=== PATIENT | female | born 1970 | race Caucasian/White ===

== ENCOUNTER → 2019-11-26 12:38 | Outpatient (BNVA) | payer BC, SELFPAY | PROVIDERS: Family Provider Family Medicine; PCP Family Medicine; Visit Provider Anesthesiology | DX: M54.5 Low back pain (principal); M79.651 Pain in right thigh; M79.652 Pain in left thigh; F17.210 Nicotine dependence, cigarettes, uncomplicated; Z79.891 Long term (current) use of opiate analgesic | CPT/HCPCS: 99214 ==

== ENCOUNTER → 2020-03-22 08:17 | Outpatient (BNVA) | payer BC, SELFPAY | PROVIDERS: Family Provider Family Medicine; PCP Family Medicine; Visit Provider Anesthesiology | DX: M54.41 Lumbago with sciatica, right side (principal); M54.42 Lumbago with sciatica, left side; M54.9 Dorsalgia, unspecified; F17.210 Nicotine dependence, cigarettes, uncomplicated; Z79.891 Long term (current) use of opiate analgesic; Z71.6 Tobacco abuse counseling | CPT/HCPCS: 99214 ==

== ENCOUNTER → 2020-04-20 08:37 | Outpatient (BNVA) | payer BC, SELFPAY | PROVIDERS: Family Provider Family Medicine; PCP Family Medicine; Visit Provider Nurse Practitioner | DX: M54.42 Lumbago with sciatica, left side (principal); M54.9 Dorsalgia, unspecified; F17.210 Nicotine dependence, cigarettes, uncomplicated; Z79.891 Long term (current) use of opiate analgesic; Z71.6 Tobacco abuse counseling | CPT/HCPCS: 99214 ==

== ENCOUNTER → 2020-06-15 08:55 | Outpatient (BNVA) | payer BC, SELFPAY | PROVIDERS: Family Provider Family Medicine; PCP Family Medicine; Visit Provider Anesthesiology | DX: M54.42 Lumbago with sciatica, left side (principal); M54.41 Lumbago with sciatica, right side; M54.9 Dorsalgia, unspecified; F17.210 Nicotine dependence, cigarettes, uncomplicated; Z79.891 Long term (current) use of opiate analgesic | CPT/HCPCS: 99213; 99214 ==

== ENCOUNTER 2020-08-08 08:11 | Outpatient (CLI) | payer BC, SELFPAY ==
[2020-08-08 08:32] LABS: Basophils # 0.1 10^3/uL (0.0-0.1); Basophils % 0.8 %; Eosinophils # 0.2 10^3/uL (0.0-0.8); Eosinophils % 1.8 %; Hematocrit 42.5 % (37.0-47.0); Hemoglobin 13.9 g/dL (11.5-15.3); Lymphocytes # 1.8 10^3/uL (0.8-4.8); Lymphocytes % 17.5 %; Mean Corpuscular HGB Conc 32.7 g/dL (30.0-36.0); Mean Corpuscular Hemoglobin 29.9 pg (28.0-34.0); Mean Corpuscular Volume 91.4 fL (81-99); Mean Platelet Volume 9.3 fL (7.4-10.4); Monocytes # 0.6 10^3/uL (0.2-0.9); Neutrophils # 7.38 10^3/uL (1.8-7.7); Neutrophils % 72.7 %; Nucleated Red Blood Cells % 0 %; Platelet Count 242 10^3/cmm (130-400); Red Blood Count 4.65 10^6/uL (4.1-5.3); Red Cell Distribution Width 12.9 % (12.1-15.1); White Blood Count 10.1 10^3/uL (4.0-10.0)
[2020-08-08 08:53] LABS: Albumin Level 4.3 g/dL (3.5-5.2); Anion Gap 11.5 (5-19); Blood Urea Nitrogen 9 mg/dL (6-20); Calcium 9.9 mg/dL (8.5-10.5); Carbon Dioxide 28 mmol/L (22-29); Chloride 99 mmol/L (98-107); Glomerular Filtration Rate 58.9 mL/min (90-130); Glucose 136 mg/dL (65-115); Phosphorus 3.8 mg/dL (2.5-4.5); Potassium 4.5 mmol/L (3.5-5.1); Sodium 134 mmol/L (136-145)
[2020-08-08 09:06] LABS: Urine Creatinine 74 mg/dL (28-217); Urine Protein Random 9 mg/dL
[2020-08-08 09:11] LABS: UPRO/UCREAT Ratio 0.12 mg/mg CR
== END 2020-08-08 08:12 | disposition home or self-care (01) ==
LOC: LAB 08:15
PROVIDERS: PCP Family Medicine; Visit Provider Registered Nurse
DX: N18.30 Chronic kidney disease, stage 3 unspecified (principal)
CPT/HCPCS: 36415; 80069; 82570; 84156; 85025

== ENCOUNTER → 2020-08-17 08:31 | Outpatient (BNVA) | payer BC, SELFPAY | PROVIDERS: Family Provider Family Medicine; PCP Family Medicine; Visit Provider Anesthesiology | DX: M54.9 Dorsalgia, unspecified (principal); F17.210 Nicotine dependence, cigarettes, uncomplicated; Z79.891 Long term (current) use of opiate analgesic | CPT/HCPCS: 99212; 99214 ==

== ENCOUNTER → 2020-10-12 08:04 | Outpatient (BNVA) | payer BC, SELFPAY | PROVIDERS: Family Provider Family Medicine; PCP Family Medicine; Visit Provider Anesthesiology | DX: M54.42 Lumbago with sciatica, left side (principal); M54.41 Lumbago with sciatica, right side; M54.9 Dorsalgia, unspecified; F17.210 Nicotine dependence, cigarettes, uncomplicated; Z79.891 Long term (current) use of opiate analgesic | CPT/HCPCS: 99213 ==

== ENCOUNTER → 2020-11-17 08:41 | Outpatient (BNVA) | payer BC, SELFPAY | PROVIDERS: Family Provider Family Medicine; PCP Family Medicine; Visit Provider Nurse Practitioner | DX: G89.29 Other chronic pain (principal); M54.9 Dorsalgia, unspecified; F17.210 Nicotine dependence, cigarettes, uncomplicated; Z79.891 Long term (current) use of opiate analgesic; Z71.6 Tobacco abuse counseling | CPT/HCPCS: 99214 ==

== ENCOUNTER → 2021-01-13 09:25 | Outpatient (BNVA) | payer BC, SELFPAY | PROVIDERS: Family Provider Family Medicine; PCP Family Medicine; Visit Provider Nurse Practitioner | DX: M54.9 Dorsalgia, unspecified (principal); F17.210 Nicotine dependence, cigarettes, uncomplicated; Z79.891 Long term (current) use of opiate analgesic | CPT/HCPCS: 99213 ==

== ENCOUNTER 2021-03-14 09:57 | Emergency (ER) | payer BC, SELFPAY ==
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
[2021-03-14 10:05] VITALS: BP 169/99; PULSE 73; RESP 18; TEMP 36.6; O2SAT 97; BMI 36.0
[2021-03-14 10:09] VITALS: BP 124/80; PULSE 69; RESP 18; O2SAT 97
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
[2021-03-14 11:13] LABS: Basophils # 0.1 10^3/uL (0.0-0.1); Basophils % 0.9 %; Eosinophils # 0.2 10^3/uL (0.0-0.8); Eosinophils % 1.3 %; Hematocrit 43.1 % (37.0-47.0); Lymphocytes # 2.3 10^3/uL (0.8-4.8); Lymphocytes % 19.8 %; Mean Corpuscular HGB Conc 32.5 g/dL (30.0-36.0); Mean Corpuscular Hemoglobin 29.5 pg (28.0-34.0); Mean Corpuscular Volume 90.9 fL (81-99); Monocytes # 0.8 10^3/uL (0.2-0.9); Monocytes % 6.7 %; Neutrophils # 8.21 10^3/uL (1.8-7.7); Neutrophils % 69.9 %; Nucleated Red Blood Cells % 0 %; Platelet Count 236 10^3/cmm (130-400); Red Blood Count 4.74 10^6/uL (4.1-5.3); Red Cell Distribution Width 12.7 % (12.1-15.1); White Blood Count 11.7 10^3/uL (4.0-10.0)
[2021-03-14] MEDS: iodixanol 320 mg/mL 100mL Btl IV (11:16)
[2021-03-14 11:33] LABS: Anion Gap 15.7 (5-19); Blood Urea Nitrogen 15 mg/dL (6-20); Calcium 7.6 mg/dL (8.5-10.5); Carbon Dioxide 26 mmol/L (22-29); Chloride 99 mmol/L (98-107); Creatinine Clr Calc Pharmacy 92.8984; Glomerular Filtration Rate 66.3 mL/min (90-130); Glucose 173 mg/dL (65-115); Osmolality Calculated 285 mOsm/kg (285-295); Potassium 5.7 mmol/L (3.5-5.1); Sodium 135 mmol/L (136-145)
[2021-03-14 12:24] LABS: Add Urine Microscopic? NO; Charge for UA Resulting for Rev
[2021-03-14 12:33] LABS: Bilirubin Urine Neg (Negative); Blood Urine Neg (Negative); Glucose Urine UA Norm (Normal); Ketones Urine Negative (Negative); Leukocyte Esterase Urine Negative (Negative); Nitrate Urine Negative (Negative); Protein Urine Neg (Negative); Urine Appearance Clear (CLEAR); Urine Color Yellow (Yellow); Urobilinogen Urine Norm (Negative); pH Urine 5 (5-7)
[2021-03-14 13:16] VITALS: BP 144/101; PULSE 70; RESP 16; O2SAT 98
== END 2021-03-14 13:17 | disposition home or self-care (01) ==
PROVIDERS: Emergency Provider Family Medicine; PCP Family Medicine
DX: Z04.1 Encounter for examination and observation following transport accident (principal); M54.9 Dorsalgia, unspecified; V89.2XXA Person injured in unspecified motor-vehicle accident, traffic, initial encounter; F17.210 Nicotine dependence, cigarettes, uncomplicated
CPT/HCPCS: 70450; 71260; 72125; 74177; 80048; 81003; 85025; 99283; Q9967

== ENCOUNTER → 2021-03-16 08:51 | Outpatient (BNVA) | payer BC, SELFPAY | PROVIDERS: PCP Family Medicine; Visit Provider Nurse Practitioner | DX: M54.9 Dorsalgia, unspecified (principal); F17.210 Nicotine dependence, cigarettes, uncomplicated; Z79.891 Long term (current) use of opiate analgesic; Z71.6 Tobacco abuse counseling | CPT/HCPCS: 99213 ==

== ENCOUNTER → 2021-05-16 08:31 | Outpatient (BNVA) | payer BC, SELFPAY | PROVIDERS: PCP Family Medicine; Visit Provider Nurse Practitioner | DX: M25.512 Pain in left shoulder (principal); M54.9 Dorsalgia, unspecified; F17.210 Nicotine dependence, cigarettes, uncomplicated; Z79.891 Long term (current) use of opiate analgesic; Z71.6 Tobacco abuse counseling | CPT/HCPCS: 99214 ==

== ENCOUNTER → 2021-06-09 09:12 | Outpatient (BNVA) | payer BC, SELFPAY | PROVIDERS: PCP Family Medicine; Visit Provider Anesthesiology | DX: M54.5 Low back pain (principal); M25.512 Pain in left shoulder; F17.210 Nicotine dependence, cigarettes, uncomplicated; Z79.891 Long term (current) use of opiate analgesic | CPT/HCPCS: 99213 ==

== ENCOUNTER 2021-07-11 08:00 | Outpatient (CLI) | payer BC, SELFPAY ==
--- NOTE | 2021-07-11 08:03 | XR_ITS ---
WS: [id number] LUMBAR SPINE FLEXION AND EXTENSION TECHNIQUE: 3 views of the lumbar spine: Lateral neutral, flexion, and extension views. CLINICAL INFORMATION: LOW BACK PAIN COMPARISON: None. FINDINGS: Slight retrolisthesis L4 on L5. No significant instability on flexion-extension. Disc space heights and vertebral body heights well-preserved. Mild disc space narrowing L5-S1. Mild facet arthr opathy L5-S1. XR/XR lumbar spine f/e only [id number] IMPRESSION: 1. No instability on flexion-extension. 2. Trace retrolisthesis L4 on L5. 3. Disc space heights and vertebral body heights well-preserved. 4. Mild facet arthropathy L5-S1.
--- NOTE | 2021-07-11 08:04 | MR_ITS ---
WS: [id number] MRI LUMBAR SPINE NONCONTRAST TECHNIQUE: Sagittal T1, T2 and STIR imaging. Axial T1 and T2 imaging. CLINICAL INFORMATION: LOW BACK PAIN COMPARISON: None. FINDINGS: Mild lumbar curve. No acute compression. No high-grade central canal stenosis. Mild annular bulging T 11-T12. L1-L2: Normal. L2-L3: Mild annular bulging with a small left foraminal protrusion. Mild left and no significant righ t foraminal narrowing. Slight narrowing of the left subarticular recess. Mild facet arthropathy. L3-L4: Mild annular bulging with slight effacement of ventral thecal sac. Tiny foraminal protrusions with mild bilateral foraminal narrowing. Mild facet arthropathy. L4-L5: Left eccentric disc bulging L4-5 with a small annular tear. Contact of the exiting left L4 ner ve root. Mild left foraminal narrowing. Right foramen is patent. Moderate facet arthropathy. Slight i mpingement on the traversing left L5 nerve root in the subarticular recess. L5-S1: Mild eccentric disc bulging. Mild facet arthropathy. Spinal canal and foramen are patent. Partially visualized right ovarian cyst with hematocrit level measuring 2.8 x 1.9 CM. This can be fol lowed up with ultrasound. MR/MR lumbar spine wo con* [id number] IMPRESSION: 1. Mild lumbar curve. No acute compression. No high-grade central canal stenos is. 2. Small left foraminal protrusion L2-3 with mild left foraminal narrowing. 3. Small bilateral foraminal protrusions L3-4 with mild bilateral foraminal na rrowing. 4. Left eccentric disc bulging L4-5 with small annular tear and slight impinge ment on the exiting left L4 nerve root. In addition slight impingement on the t raversing left L5 nerve root in the subarticular recess. 5. Mild central canal stenosis L3-4 with slight narrowing of the subarticular recess. 6. Partially visualized right ovarian cyst with hematocrit level measuring 2.8 x 1.9 CM. This can be followed up with ultrasound.
== END 2021-07-11 08:01 | disposition home or self-care (01) ==
PROVIDERS: PCP Family Medicine; Visit Provider Nurse Practitioner
DX: M54.5 Low back pain (principal); M48.061 Spinal stenosis, lumbar region without neurogenic claudication; N83.201 Unspecified ovarian cyst, right side; M47.816 Spondylosis without myelopathy or radiculopathy, lumbar region
CPT/HCPCS: 72120; 72148

== ENCOUNTER 2021-11-29 00:54 | Emergency (ER) | payer OTHER, SELFPAY ==
[2021-11-29 01:05] VITALS: BP 174/88; PULSE 88; RESP 18; TEMP 36.8; O2SAT 100
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
== END 2021-11-29 02:51 | disposition home or self-care (01) ==
PROVIDERS: Emergency Provider Nurse Practitioner Family; PCP Family Medicine
DX: S39.012A Strain of muscle, fascia and tendon of lower back, initial encounter (principal); T14.8XXA Other injury of unspecified body region, initial encounter; M79.622 Pain in left upper arm; V79.9XXA Bus occupant (driver) (passenger) injured in unspecified traffic accident, initial encounter; F17.210 Nicotine dependence, cigarettes, uncomplicated
CPT/HCPCS: 73060; 99282

== ENCOUNTER 2022-02-19 09:12 | Outpatient (CLI) | payer BC, SELFPAY ==
[2022-02-19 09:49] LABS: Basophils # 0.1 10^3/uL (0.0-0.1); Basophils % 0.6 %; Eosinophils # 0.2 10^3/uL (0.0-0.8); Eosinophils % 1.5 %; Hematocrit 44.4 % (37.0-47.0); Hemoglobin 14.7 g/dL (11.5-15.3); Lymphocytes # 1.7 10^3/uL (0.8-4.8); Mean Corpuscular HGB Conc 33.1 g/dL (30.0-36.0); Mean Corpuscular Hemoglobin 29.8 pg (28.0-34.0); Mean Corpuscular Volume 90.1 fl (81-99); Mean Platelet Volume 9.5 fL (7.4-10.4); Monocytes # 0.7 10^3/uL (0.2-0.9); Monocytes % 6.3 %; Neutrophils # 7.91 10^3/uL (1.8-7.7); Neutrophils % 74.7 %; Nucleated Red Blood Cells % 0 %; Platelet Count 236 10^3/cmm (130-400); Red Blood Count 4.93 10^6/uL (4.1-5.3); Red Cell Distribution Width 12.9 % (12.1-15.1); White Blood Count 10.6 10^3/uL (4.0-10.0)
[2022-02-19 10:23] LABS: Albumin Level 4.5 g/dL (3.5-5.2); Anion Gap 15.9 (5-19); Blood Urea Nitrogen 18 mg/dL (6-20); Calcium 10.1 mg/dL (8.5-10.5); Calcium 10.4 mg/dL (8.5-10.5); Carbon Dioxide 26 mmol/L (22-29); Chloride 98 mmol/L (98-107); Glomerular Filtration Rate 52.4 mL/min (90-130); Glucose 128 mg/dL (65-115); Phosphorus 4.5 mg/dL (2.5-4.5); Potassium 4.9 mmol/L (3.5-5.1); Sodium 135 mmol/L (136-145)
[2022-02-19 10:34] LABS: Creatinine Urine, Random 162 mg/dL (28-217); Microalbum Creatinine Ratio Ur 25 mg/dL (0-20); Microalbumin Random Urine 4 ug/dL (0-20)
[2022-02-19 10:38] LABS: 25 Hydroxy Vitamin D 33 ng/mL (30-100)
[2022-02-19 10:47] LABS: Parathyroid Hormone 33.2 pg/mL (15-65)
== END 2022-02-19 09:13 | disposition home or self-care (01) ==
LOC: LAB 09:23
PROVIDERS: PCP Family Medicine; Visit Provider Internal Medicine Nephrology
DX: N18.30 Chronic kidney disease, stage 3 unspecified (principal)
CPT/HCPCS: 36415; 80069; 82044; 82306; 82310; 83970; 85025

== ENCOUNTER 2022-03-30 07:00 | Outpatient (CLI) | payer BC, OTHER, SELFPAY ==
--- NOTE | 2022-03-30 07:09 | US_ITS ---
WS: [id number] RENAL ULTRASOUND HISTORY: STAGE 3A CHRONIC KIDNEY DZ COMPARISON: 02/07/2018 TECHNIQUE: 2-D and color Doppler imaging of the kidney submitted. Right kidney: 11.8 cm x 6.7 cm x 5.5 cm. Normal echogenicity with no hydronephrosis or mass. Left kidney: 7.2 cm x 3.9 cm x 3.4 cm. Moderate atrophy with diffuse increased echogenicity throughout the kidney. No hydronephrosis or mass . Progression of chronic medical renal disease and atrophy since 2018. Aorta: Normal. Urinary Bladder: Normal distention. US/US renal BI* [id number] IMPRESSION: 1. Moderate to severe chronic medical renal disease LEFT kidney with moderate atrophy. Significant progression of chronic medical renal disease since 2018. 2. Normal RIGHT kidney.
== END 2022-03-30 07:01 | disposition home or self-care (01) ==
LOC: RAD 07:01
PROVIDERS: PCP Family Medicine; Visit Provider Internal Medicine Nephrology
DX: N18.31 Chronic kidney disease, stage 3a (principal)
CPT/HCPCS: 76770

== ENCOUNTER → 2023-01-31 11:50 | Outpatient (BNVA) | payer BC, SELFPAY | PROVIDERS: PCP Family Medicine; Visit Provider Family Medicine | DX: E11.9 Type 2 diabetes mellitus without complications (principal); Z51.81 Encounter for therapeutic drug level monitoring | CPT/HCPCS: 80053; 83036; 85025 ==

== ENCOUNTER 2023-04-19 07:59 | Outpatient (CLI) | payer BC, SELFPAY ==
--- NOTE | 2023-04-19 08:09 | MR_ITS ---
WS: [id number] MRI LUMBAR SPINE NONCONTRAST HISTORY: CERVICAL DISC DISORDER W/RADICULOPATHY COMPARISON: 07/11/2021 TECHNIQUE: Sagittal and axial multisequence imaging is submitted. Normal lumbar alignment with no compression fractures or marrow edema. Disc spaces and vertebral body heights are well-preserved. Conus terminates normally at L1-2 disc level. L1-L2: Normal. L2-L3: Mild annular disc bulging with small bilateral proximal foraminal disc protrusions. Mild LEFT foraminal stenosis. There is very minimal disc contact on the traversing L3 nerve roots. Very similar findings to the prior examination. L3-L4: Mild annular disc bulging with mild effacement of the ventral thecal sac. Very small foraminal disc protrusions with mild bilateral foraminal narrowing. Very similar to the prior study. Mild encr oachment upon the traversing L4 nerve roots. L4-L5: Mild annular disc bulging. Shallow eccentric LEFT foraminal disc protrusion with annular fissu re. There is mild contact on the exiting LEFT L4 nerve root and mild foraminal narrowing. Mild bilate ral facet joint arthritis. Very slight impingement upon the traversing L5 nerve root in the subarticu lar recess. Slightly progressed since the prior study. L5-S1: Minimal facet joint arthritis. No stenosis. MR/MR lumbar spine wo con* [id number] IMPRESSION: 1. Minimal progression of contact on the traversing L5 nerve root at L4-5 and the subarticular recess since the prior study. 2. Otherwise no significant progression of stenoses or disc disease. 3. No high-grade central or foraminal stenosis. 4. Mild LEFT foraminal stenosis at L2-3 with minimal disc contact on the trave rsing L3 nerve roots. 5. Small bilateral foraminal disc protrusions with bilateral foraminal narrowi ng. Minimal contact on the traversing L4 nerve roots. 6. Shallow eccentric LEFT foraminal disc protrusion with annular fissures at L 4-5.
--- NOTE | 2023-04-19 08:09 | MR_ITS ---
WS: [id number] MRI CERVICAL SPINE NONCONTRAST HISTORY: Neck and back pain. COMPARISON: Cervical spine 03/14/2021 Technique: Multiplanar, multisequence noncontrast imaging of the cervical spine. Mild straightening of the normal cervical lordosis. No loss of disc space height or vertebral body he ight. No marrow edema. Signal within the cervical cord is normal. Visualized posterior fossa is unremarkable. Craniocervical junction, C1 and C2 relationship, odontoid process and soft tissues are normal. C2-C3: Normal. C3-C4: Small central disc protrusion. No stenosis. C4-C5: Normal. C5-C6: Mild annular disc bulging. No stenosis. C6-C7: Mild annular disc bulging with a small central disc protrusion. Effacement of CSF. Small amoun t of CSF still surrounds the cord. Mild foraminal narrowing due to osteophytes, greatest on the LEFT. C7-T1: Normal. Paraspinal soft tissue are normal. MR/MR cervical spin wo con* [id number] IMPRESSION: 1. No acute fracture or significant central or foraminal stenosis. 2. Small central disc protrusions at C3-4 and C6-7. 3. Mild foraminal narrowing at C6-7 due to osteophytes, greatest on the LEFT.
== END 2023-04-19 08:00 | disposition home or self-care (01) ==
LOC: RAD 08:01
PROVIDERS: PCP Family Medicine; Visit Provider Physical Therapist
DX: M50.123 Cervical disc disorder at C6-C7 level with radiculopathy (principal); M50.11 Cervical disc disorder with radiculopathy, high cervical region; M25.78 Osteophyte, vertebrae; M48.061 Spinal stenosis, lumbar region without neurogenic claudication; M51.26 Other intervertebral disc displacement, lumbar region
CPT/HCPCS: 72141; 72148

== ENCOUNTER 2023-05-08 07:41 | Outpatient (CLI) | payer BC, SELFPAY ==
--- NOTE | 2023-05-08 08:00 | MR_ITS ---
WS: [id number] MRI RIGHT SHOULDER HISTORY: Right shoulder pain COMPARISON: None available. TECHNIQUE: Multiplanar sequences of the shoulder joint are submitted. Numerous sequences are suboptimal and limited by motion artifact. Moderate AC joint arthritis. There is significant motion artifact limiting evaluation of the AC joint . There is encroachment with deformity of the supraspinatus tendon and muscle over the humeral head. No significant subacromial impingement. There does appear to be a small amount of fluid in the subacr omial and subdeltoid bursa. No os acromion. Normal biceps tendon. Mild narrowing of the glenohumeral joint. Degraded image quality by motion. No significant rotator cu ff muscle atrophy and no edema. There is increase fluid along the tendon sheath of the supraspinatus with increasing fluid at the insertion site. Insertion site tear is suspected with interstitial exten meredith of the fluid. No retraction of the tendon. The remaining tendons are intact. Labral evaluation i s suboptimal due to the motion. There is a small amount of increased T2 signal in the anterior labrum but cannot confirm tear. MR/MR shoulder RT wo con* [id number] IMPRESSION: 1. Quality of this examination is compromised by motion artifact. 2. Moderate AC joint arthritis with mild encroachment upon the myotendinous po rtion of the supraspinatus. 3. Distal insertion site tear of the supraspinatus tendon with extension of fl uid along the tendon sheath. 4. No rotator cuff muscle atrophy or edema. 5. Intrasubstance degeneration in the anterior labrum.
== END 2023-05-08 07:42 | disposition home or self-care (01) ==
PROVIDERS: PCP Family Medicine; Visit Provider Family Medicine
DX: M25.511 Pain in right shoulder (principal); M19.011 Primary osteoarthritis, right shoulder
CPT/HCPCS: 73221

== ENCOUNTER → 2023-08-05 14:35 | Outpatient (BNVA) | payer BC, SELFPAY | PROVIDERS: PCP Family Medicine; Visit Provider Family Medicine | DX: Z51.81 Encounter for therapeutic drug level monitoring (principal); E11.9 Type 2 diabetes mellitus without complications; M54.9 Dorsalgia, unspecified; M25.552 Pain in left hip; I10 Essential (primary) hypertension; M25.511 Pain in right shoulder; F41.9 Anxiety disorder, unspecified | CPT/HCPCS: 80053; 83036 ==

== ENCOUNTER 2023-09-29 08:52 | Observation (INO) | payer BC, SELFPAY ==
[2023-09-29] VITALS (11 sets, daily range): BP systolic 120–184; BP diastolic 78–112; PULSE 61–75; RESP 13–18; TEMP 37.2; O2SAT 94–100
--- NOTE | 2023-09-29 08:52 | XRR_ITS ---
PROCEDURE INFORMATION: Exam: XR Chest Exam date and time: 09/29/2023 9:32 AM Age: 52 years old Clinical indication: Pain; Chest pressure; Additional info: Cp TECHNIQUE: Imaging protocol: Radiologic exam of the chest. Views: 1 view. COMPARISON: CT chest abdpel w/*[id number] 03/14/2021 10:58 AM FINDINGS: Lungs: Unremarkable. No consolidation. Pleural spaces: Unremarkable. No pleural effusion. No pneumothorax. Heart/Mediastinum: Unremarkable. No cardiomegaly. Bones/joints: Unremarkable. XR/XR chest 1V portable [id number] IMPRESSION: No acute findings.
--- NOTE | 2023-09-29 09:02 | ECG_ITS ---
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 Measurements Intervals [place] Rate: 56 P: 47 [place]: 145 QRS: 55 QRSD: 94 T: 100 QT: 402 QTc: 389 Interpretive Statements SINUS BRADYCARDIA ST elevation in the inferior leads suggesting acute inferior wall injury MODERATE ST DEPRESSION [0.05+ mV ST DEPRESSION] INTERPRETATION BASED ON A DEFAULT AGE OF 40 YEARS No previous ECG available for comparison Electronically Signed On 09-29-2023 19:43:44 MARKET RELATIONSHIP MANAGER by Pollo Canales M.D. [id number] f
--- NOTE | 2023-09-29 09:05 | W.ED.CHESTPA ---
HPI - Chest Pain General: Chief Complaint: Chest Pain Stated Complaint: chest pains Time Seen by Provider: 09/29/23 08:53 Source: patient Mode of arrival: ambulatory Limitations: no limitations History of Present Illness: 52-year-old female states she started having chest pain last night. States pressure type pain in her chest that goes to her left neck states had some diaphoresis as well. States she has had a cough over the last week denies any fevers or shortness of breath. No history of coronary artery disease is a smoker and has a history of hypertension. Associated symptoms: Deny abdominal pain, dyspnea, fever(s), nausea or vomiting Review of Systems Const: Denies: fever(s), chills, body aches or change in appetite Eyes: Denies: blurry vision or eye discomfort ENMT: Denies: throat pain or dental pain Card: Reports: chest pain Resp: Reports: non-productive cough; Denies: dyspnea GI: Denies: abdominal pain, nausea, vomiting or diarrhea Musc: Denies: neck pain or back pain Skin/Breast: Denies: rash Neuro: Denies: headache(s) PFSH ED PFSH: Medical History Hypertension Tobacco abuse counseling Opioid contract exists Encounter for long-term use of opiate analgesic Musculoskeletal back pain Smoker HGSIL (high grade squamous intraepithelial lesion) on Pap smear of cervix Patient was counseled regarding abnormal Pap smear results. Her Pap resulted in high-grade TARA. Women with this results have a 5 year DAVID-3+ risks of 47% and per current ACOG/ASSCP guidelines a colposcopy is indicated. She was counseled regarding colposcopy and an ACOG patient medication handout regarding abnormal Pap results and colposcopy was given. All questions were answered regarding colposcopy. Colposcopy was inadequate and a diagnostic excision as a cone biopsy is recommended. She was counseled regarding cone biopsy and elected to proceed with the procedure. She is scheduled for the diagnostic excisional procedure on 11/12/2018. Surgical History History of carpal tunnel surgery of left wrist Dr. Rodríguez History of cervical biopsy Cervical cone biopsy 11/12/2018 History of surgical removal of ganglion cyst History of bunionectomy History of cholecystectomy Family History Mother Diabetes Heart disease Family/Other Breast cancer Maternal Aunt Social History Smoking and tobacco/nicotine status: current every day tobacco/nicotine user cigarettes Packs smoked per day: 0.5 Alcohol intake: never Substance/Drug Use: never Additional social history: Well balanced diet Physical Exam Const: COMMON NORMALS: patient oriented x3 HENMT: COMMON NORMALS: normocephalic and atraumatic HEAD & SCALP: normocephalic and atraumatic Eye: COMMON NORMALS: Equal, round and reactive pupils present and EOMs intact bilaterally PUPIL: Yes Equal, round and reactive pupils present Neck/C-Spine: COMMON NORMALS: full ROM and supple Chest: COMMONS NORMALS: normal inspection of the chest and normal palpation of entire chest wall Resp: COMMON NORMALS: normal respiratory effort, No retractions, No use of accessory muscles and clear to auscultation bilaterally AUSCULTATION: clear to auscultation bilaterally Cardio: COMMON NORMALS: regular rate, regular rhythm and No murmurs present (Cardio) RATE: regular rate RHYTHM: regular rhythm GI: COMMON NORMALS: Normal to inspection, nondistended, normoactive bowel sounds present, Soft to palpation, non-tender and no masses PALPATION: Yes Soft to palpation Extremity: COMMON NORMALS: normal to inspection and full ROM Neuro: COMMON NORMALS: patient oriented x3, moves all extremities and no focal motor deficits Psych: COMMON NORMALS: mental status grossly normal, Normal thought process present and cooperative THOUGHT PROCESS: Normal thought process present Skin: COMMON NORMALS: no rashes or lesions noted and no wounds GENERAL SKIN EXAM: no rashes or lesions noted Course Reevaluation(s): Reevaluation #1: Patient's EKG had elevation in 1-lead depression in aVL no elevation in 2 contiguous leads no STEMI I did have Dr. Vela review the EKGs who agreed that EKG is not a STEMI I recommend to follow troponins Time: 09:05 Reevaluation #2: Patient's pain here is actually improved her troponin was 11 I had nurse repeat EKG as has concerns of first EKG changes and patient's EKG here now is showing evolving STEMI with elevation in leads III and aVF Time: 10:10 Vital Signs: Vital signs: Vital Signs Pulse Rate 61 09/29/23 08:59 Respiratory Rate 18 09/29/23 08:59 Blood Pressure 184/97 09/29/23 08:59 Pulse Oximetry 100 09/29/23 08:59 Oxygen Delivery Me thod Room Air 09/29/23 08:59 MDM - Chest Pain Medical Decision Making Patient presents here with ST elevation AR seen on 30 EKG here her pain is improved spoke to ethnology professor and is going to 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 Lab Data I reviewed the patient's lab results. 09/29/23 09:07 09/29/23 09:07 Radiology Impressions Chest X-Ray 09/29/23 08:52 IMPRESSION: No acute findings. Laboratory Results WBC 11.53 10^3/uL (3.29-11.43) H 09/29/23 09:07 RBC 5.18 10^6/uL (3.85-5.65) 09/29/23 09:07 Hgb 15.60 g/dL (11.27-16.99) 09/29/23 09:07 Hct 47.0 % (36-47) 09/29/23 09:07 MCV 90.7 fl (85-98) 09/29/23 09:07 MCH 30.1 pg (27-33) 09/29/23 09:07 MCHC 33.2 g/dL (30-55) 09/29/23 09:07 RDW 13.1 % (12.1-15.1) 09/29/23 09:07 Plt Count 295 10^3/cmm (157-399) 09/29/23 09:07 MPV 9.5 fL (7.4-10.4) 09/29/23 09:07 Neut % (Auto) 65.9 % 09/29/23 09:07 Lymph % (Auto) 21.9 % 09/29/23 09:07 [place] % (Auto) 8.0 % 09/29/23 09:07 Eos % (Auto) 2.2 % 09/29/23 09:07 Baso % (Auto) 1.0 % 09/29/23 09:07 Neut # (Auto) 7.60 10^3/uL (1.8-7.7) 09/29/23 09:07 Lymph # (Auto) 2.5 10^3/uL (0.8-4.8) 09/29/23 09:07 [place] # (Auto) 0.9 10^3/uL (0.2-0.9) 09/29/23 09:07 Eos # (Auto) 0.3 10^3/uL (0.0-0.8) 09/29/23 09:07 Baso # (Auto) 0.1 10^3/uL (0.0-0.1) 09/29/23 09:07 Nucleated RBC % (auto) 0 % 09/29/23 09:07 Nucleated RBCs # 0.0 /100WBC 09/29/23 09:07 PT 12.20 SECONDS (12.1-14.9) 09/29/23 09:07 INR 0.88 (0.8-1.2) 09/29/23 09:07 Sodium 136 mmol/L (136-145) 09/29/23 09:07 Potassium 4.4 mmol/L (3.5-5.1) 09/29/23 09:07 Chloride 100 mmol/L (98-107) 09/29/23 09:07 Carbon Dioxide 24 mmol/L (22-29) 09/29/23 09:07 Anion Gap 16.4 (5-19) 09/29/23 09:07 BUN 15 mg/dL (6-20) 09/29/23 09:07 Creatinine 1.1 mg/dL (0.5-0.9) H 09/29/23 09:07 GFR Calculation 52.2 mL/min (90-130) L 09/29/23 09:07 Glucose 184 mg/dL (65-115) H 09/29/23 09:07 Calculated Osmolality 288 mOsm/kg (285-295) 09/29/23 09:07 Calcium 9.9 mg/dL (8.5-10.5) 09/29/23 09:07 Total Bilirubin 0.3 mg/dL (0.15-1.2) 09/29/23 09:07 AST 15 U/L (0-32) 09/29/23 09:07 ALT 31 U/L (0-33) 09/29/23 09:07 Alkaline Phosphatase 94 U/L (35-105) 09/29/23 09:07 Troponin T Baseline 11 ng/L (0-10) H 09/29/23 09:07 Total Protein 7.8 g/dL (6.6-8.7) 09/29/23 09:07 Albumin 4.4 g/dL (3.5-5.2) 09/29/23 09:07 Globulin 3.4 g/dL (1.3-4.6) 09/29/23 09:07 Lipase 24 U/L (13-60) 09/29/23 09:07 All radiology interpretation(s) finalized by discharge EKG Data EKG 1: I personally reviewed and interpreted this EKG as follows: EKG interpretation date: 09/29/23 EKG interpretation time: 09:02 Interpretation: sinus michelet hr 56 no stemi elevation in lead 3 depression in avl EKG 3: I personally reviewed and interpreted this EKG as follows: EKG interpretation date: 09/29/23 EKG interpretation time: 10:10 Interpretation: nsr hr 63 st elevation 3 and avf Critical Care Time Critical Care Time: Critical Care Time: Yes Total Critical Care Time: 40 Attestation: The high probability of a clinically significant, sudden or life threatening deterioration of the patient's cv system(s) required my full and direct attention, intervention and personal management. The critical care time is as shown. This time is in addition to time spent performing any reported procedures but includes the following: [x] Data and vital sign review and interpretation [x] Patient assessment, examination and intervention [x] Documentation [x] Medication orders and management Discharge Plan Discharge Patient Disposition: Admitted As Inpatient Clinical Impression: ST elevation myocardial infarction (STEMI) Condition: Stable Prescriptions: No Action Mirena 20 mcg/24 hours (5 yrs) 52 mg intrauterine device See Rx Instructions .ROUTE .COMPLEX Rx Instructions: intrauterinely codeine-guaifenesin 10-100 mg/5 mL liquid 5 ml PO Q6H PRN (Reason: cough) 5 Days Qty: 100 0RF (DME) blood-glucose meter Kit See Rx Instructions .ROUTE .MEDSUPPLY Qty: 1 0RF Rx Instructions: As directed clonidine HCl 0.1 mg tablet 0.1 mg PO DAILY PRN (Reason: hypertensive emergency) Qty: 30 0RF Rx Instructions: WHEN BP IS > 170 (DME) lancets [OneTouch Delica Plus Lancet] 33 gauge misc See Rx Instructions .ROUTE .MEDSUPPLY Qty: 100 12RF Rx Instructions: As directed (DME) OneTouch Ultra Test Strip See Rx Instructions .Route Qty: 100 12RF Rx Instructions: As directed hydrocodone-acetaminophen 7.5-325 mg tablet 1 tab PO Q6H PRN (Reason: pain) 30 Days Qty: 120 0RF atenolol 100 mg tablet 100 mg PO QAM Lamictal 25 mg tablet 75 mg PO QAM amlodipine 10 mg tablet 10 mg PO QAM nystatin 100,000 unit/gram cream 1 applic topical TID PRN (Reason: Rash) losartan 100 mg tablet 50 mg PO QAM metformin 500 mg tablet extended release 24 hr 250 mg PO BID venlafaxine 150 mg tablet extended release 24hr 150 mg PO QAM Ozempic 0.25 mg or 0.5 mg (2 mg/3 mL) pen injector 0.5 mg SUBCUT Q7D Rx Instructions: on saturday Referrals: Gagan Lomeli MD [Primary Care Provider] - Coding Level of Care Code ED 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
[2023-09-29 09:13] LABS: Basophils # 0.1 10^3/uL (0.0-0.1); Eosinophils # 0.3 10^3/uL (0.0-0.8); Eosinophils % 2.2 %; Lymphocytes # 2.5 10^3/uL (0.8-4.8); Lymphocytes % 21.9 %; Mean Corpuscular HGB Conc 33.2 g/dL (30-55); Mean Corpuscular Hemoglobin 30.1 pg (27-33); Mean Corpuscular Volume 90.7 fl (85-98); Mean Platelet Volume 9.5 fL (7.4-10.4); Monocytes # 0.9 10^3/uL (0.2-0.9); Neutrophils % 65.9 %; Nucleated Red Blood Cells % 0 %; Platelet Count 295 10^3/cmm (157-399); Red Blood Count 5.18 10^6/uL (3.85-5.65); Red Cell Distribution Width 13.1 % (12.1-15.1); White Blood Count 11.53 10^3/uL (3.29-11.43)
[2023-09-29 09:24] LABS: INR 0.88 (0.8-1.2)
[2023-09-29 09:35] LABS: Alanine Aminotransferase 31 U/L (0-33); Albumin Level 4.4 g/dL (3.5-5.2); Alkaline Phosphatase 94 U/L (35-105); Anion Gap 16.4 (5-19); Aspartate Amino Transferase 15 U/L (0-32); Blood Urea Nitrogen 15 mg/dL (6-20); Calcium 9.9 mg/dL (8.5-10.5); Carbon Dioxide 24 mmol/L (22-29); Chloride 100 mmol/L (98-107); Globulin 3.4 g/dL (1.3-4.6); Glomerular Filtration Rate 52.2 mL/min (90-130); Glucose 184 mg/dL (65-115); Lipase 24 U/L (13-60); Osmolality Calculated 288 mOsm/kg (285-295); Potassium 4.4 mmol/L (3.5-5.1); Sodium 136 mmol/L (136-145); Total Bilirubin 0.3 mg/dL (0.15-1.2); Total Protein 7.8 g/dL (6.6-8.7)
[2023-09-29 09:36] LABS: Troponin(5th) Baseline 11 ng/L (0-10)
[2023-09-29] MEDS: aspirin 81 mg Chew Tablet 324 MG PO (09:58)
[2023-09-29] MEDS: nitroglycerin 0.4 mg sublingual Tablet SUBLINGUAL (09:59)
--- NOTE | 2023-09-29 09:59 | PC.PHAR ---
pt states she takes care of her own medications-pt states she takes losartan 100mg tab takes 1/2 tab (50mg) po qam rx filled 04/01/23 90d/s for 100mg daily-pt states she takes metformin er 500mg takes 1/2 tab (250mg)bid ext shows last filled 05/02/23 30d/s for 500mg bid-notes are made in the pharmacy comments
--- NOTE | 2023-09-29 10:10 | ECG_ITS ---
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 Measurements Intervals [place] Rate: 63 P: 52 NC: 150 QRS: 45 QRSD: 90 T: 103 QT: 421 QTc: 431 Interpretive Statements SINUS RHYTHM POSSIBLE LEFT ATRIAL ENLARGEMENT [-0.1mV P-WAVE IN V1/V2] ST ELEVATION, CONSIDER INFERIOR INJURY [MARKED ST ELEVATION W/O NORMALLY INFLECTED T-WAVE IN II/aVF] ACUTE PR Compared to ECG 09/29/2023 09:02:29 Myocardial infarct finding now present Sinus bradycardia no longer present ST (T wave) deviation still present Electronically Signed On 09-29-2023 19:49:54 MEDICAL PHYSICIST by Pollo Canales M.D. [id number]
--- NOTE | 2023-09-29 10:23 | XACV_ITS ---
Exam Room: 2 Ht: 168 cm Wt: 100 kg BSA: 2.20 m2 Gender: Female : 1970 Any Known Allergies: Other Exam Priority: Routine Procedure(s): Procedure Description: Diagnostic procedure Procedure Description: PCI procedure Procedure Description: Left Heart Catheterization Procedure Description: Left ventriculography Procedure Description: Drug Eluting Coronary Stent Procedure Description: PTCA Procedure Description: Coronary Angiography Dane SALCEDO; Diagnostic Cath Status: Emergency Diagnostic Findings * Chest pain began 12 hours prior to presentation. Initial EKG did not reveal evidence for an acute ST segment elevation ME. EKG 1 hour after presentation revealed ST elevation in the inferior leads. Treated appropriately with aspirin, Plavix and heparin. After treatment the pain resolved. Patient was brought to the catheterization laboratory shortly thereafter. Procedure done from the right radial artery. Patient has history of significant narcotic use in the past so sedation was somewhat difficult. * Angiography reveals left coronary artery dominance. The left main coronary artery is normal but short. There are 2 ramus intermedius branches which are essentially normal. The LAD is also normal and gives off 2 diagonal branches. The circumflex is the dominant artery and gives off what is likely two marginals. The second of those could be considered the posterior descending artery. There is significant disease of the ostial second marginal which extends all the way down to the midportion of the vessel. There is only GABRIEL I flow in this vessel. Circumflex provides collateral flow to what is most likely a small diminutive right coronary artery which is occluded. PCI Status: Emergency PCI LVEF Assessed: Yes PCI Indication: Immediate PCI for STEMI Interventional Findings * Due to the short nature of the left main and the tendency for the catheters to preferably enter the LAD or ramus the guide was difficult to seat. Wire was placed down the second obtuse marginal branch. Initially the vessel underwent angioplasty with A 2.5 x 20 mm balloon. This caused distal embolization of the thrombus and closed the artery in the midportion. Subsequently, a 2.5 x 30 mm stent was placed. This was successful in opening the artery with good flow. Decision for PCI with Surgical Consult: No PCI for Multi-vessel Disease: No Conclusions 1. Subacute inferior wall ME. Left dominant system with disease of the second marginal successfully stented. Occluded nondominant right coronary artery. Normal left anterior descending and ramus intermedius arteries. Normal left ventricular function with minimal hypokinesis of the inferior base. Recommendations * Medical therapy going forward. Risk factor modification. Interventional RX Recommendation: PCI w/o planned CABG Diagnostic RX Recommendation: PCI w/o planned CABG Anticoagulation: Heparin Ventriculography Ejection Fraction: 55.0 % Left Ventriculography Findings: * Minimal hypokinesis of the inferior base. Pressures Phase:Rest AO : 96 / 81 ( 88 ) @ 11:15:00 AM 86 / 70 ( 79 ) @ 11:24:00 AM 144 / 87 ( 112 ) @ 11:29:00 AM 147 / 90 ( 114 ) @ 11:29:00 AM 156 / 93 ( 118 ) @ 11:33:00 AM 128 / 101 ( 114 ) @ 11:41:00 AM 143 / 112 ( 127 ) @ 11:47:00 AM 142 / 111 ( 126 ) @ 11:48:00 AM 135 / 96 ( 113 ) @ 11:50:00 AM LV : 149 / 3 / 25 @ 11:28:00 AM 149 / 10 / 28 @ 11:29:00 AM 147 / 9 / 27 @ 11:29:00 AM Valves Phase:DefaultPhase AV : 3.0 @ 12:01:51 PM 3.0 @ 12:01:51 PM AV Mean Gradient: 9.0 @ 12:01:51 PM Clinical Evaluation EBL: 5mL-10mL Procedural Details Pre-Procedure Time Out. Identified patient by full name and date of as verbalized by the patient/guarantor. Does the consent match the physician's order: N/A Emergent. Accurate & Complete Informed Consent: N/A Emergent. Inpatient/Outpatient History & Physical on Chart: N/A Emergent. If H&P is completed, is and addenduem needed: N/A Emergent; If yes, is the addendum complete: N/A Emergent. Visualize and Verify Site with Patient/Guarantor: N/A. Relevant Radiology Images available: N/A Emergent. The risks, benefits, and alternatives of sedation and/or procedure were discussed by physician. The patient agrees to continue. Procedure started. [facility] Clinical Fraility Score: 3: Managing Well. Personnel Officer Indications: ACS <= 24 hours. Chest Pain Symptom Assessment: Typical Angina Symptoms. Cardiovascular Instability: Yes, if yes, Persistant Ischemic Symptoms. Correct patient, site and procedure confirmed by cath team. Current diagnosis: STEMI. PERRLA. Strong, equal hand health screener bilaterally. Lungs clear x 5 lobes. IV Site on Arrival: 18 gauge in the right anticubital. IV Site on Arrival: 18 gauge in the left anticubital. IV Fluids: 0.9% NaCl at KVO. 0 mL infused prior to denture laboratory technician. Oxygen started at 2liters/min via nasal canula. right groin was prepped with chloroprep then draped in the usual sterile fashion. right radial was prepped with chloroprep then draped in the usual sterile fashion. Baseline sample Acquired. HR: 69 BPM. Current Diagnosis : STEMI. Physician arrived. Physician scrubbed in. Immediate Pre-Procedure Time Out. Correct Patient: N/A Emergent; Correct Procedure: N/A Emergent; Correct Site: N/A Emergent; Correct Patient Position: N/A Emergent; Correct Supplies: N/A Emergent; Dried Flammable Prep: N/A Emergent; Blood Products Available: N/A Emergent;. Lidocaine 1% infiltrated to the right radial. Arterial access obtained. 6 tongan JR 4 guide catheter was inserted over the wire. Multiple views taken of right coronary artery. Guide catheter out. A 5 tongan TIG catheter in over wire. Multiple views taken of left coronary artery. Physician review of cine films. Catheter removed over the exchange wire. A 5 tongan Angled Pig catheter in over wire. EDP Sample taken: LV 149/3,25; HR: 77 BPM; SpO2: 96%. LV gram performed in KOWALSKI @ 10 mL/second for a total of 30 mL. EDP Sample taken: LV 149/10,28; HR: 75 BPM; SpO2: 97%. Pullback taken: LV 147/9,27; AO 144/87(112); Mean: 9mmHg, Peak to Peak: 3mmHg, SEP: 24sec/min; HR: 81 BPM; SpO2: 96%. Catheter removed over the exchange wire. 6 tongan XB 3 guide catheter was inserted over the wire. PCI Indication: STEMI. Ragley guidewire was advanced through the guide catheter to lesion in the OM. Inflation number : 1 A AB TREK 2.50X20 RX BALLOON was prepped and advanced across the 3rd Ob Ekta , then inflated to 12 RAJNI for 0:33 seconds. Results checked. PCI Indication : Immediate PCI for STEMI. Balloon out. Inflation Number : 2 A MCKINLEY Rodrigues FILIPPO 2.5X30 LESLY -Lot Number# [id number] EXP: 05/03/2026 was prepped and advanced across the 3rd Ob Ekta. The stent was deployed at 14 RAJNI for 0:33 seconds. Stent balloon out over wire. Wire out. Guide catheter out. A TR Band was successful obtaining hemostatsis at the Right Radial artery insertion site. Post Procedure: Pulses reassessed and unchanged. PERRLA. Strong, equal hand health screener bilaterally. No VTE prophylaxis required. Medication's Wasted: Nitro = 49.8 mg. Medication's Wasted: Other = Fentanyl 75mcg Versed 1 mg. Medication's Wasted: Heparin = 4000 units. Total IV fluids: 65 mL. Complications: None. Estimated blood loss: 5mL-10mL. Responsiveness - Normal response to verbal stimuli; alert and oriented, PERRLA. Airway - Unaffected, no intervention required; spontaneous ventilation. Circulation: W/N/L, pulses unchanged. Nausea/Vomiting: No. Vital chart was stopped. Procedure completed. Patient transferred by wheelchair to 1st floor. Access Site Site: Right Radial artery Sheath Size: 6 Fr Hemostasis Method: TR Band Hemostasis Success: Successful Procedure Medications Start: 10:55 AM Stop: 10:55 AM Medication: Fentanyl Amount: 50 mcg Route: I.V. Start: 11:06 AM Stop: 11:06 AM Medication: Versed Amount: 1 mg Route: I.V. Start: 11:08 AM Stop: 11:08 AM Medication: Versed 1 mg and Fentanyl 25 mcg Amount: 1 Route: I.V. Start: 11:10 AM Stop: 11:10 AM Medication: Versed 1 mg and Fentanyl 25 mcg Amount: 1 Route: I.V. Start: 11:13 AM Stop: 11:13 AM Medication: Nitrogylcerin Amount: 200 mcg Route: I.A. Start: 11:39 AM Stop: 11:39 AM Medication: Fentanyl Amount: 25 mcg Route: I.V. Start: 11:52 AM Stop: 11:52 AM Medication: Heparin Amount: 2000 units Route: I.V. I, the attending physician, have reviewed and verified all procedure medications. Yes, all medications given per verbal order History/Risk Factors Hypertension: No Dyslipidemia: No Peripheral Arterial Disease (PAD): No Myocardial Infarction (ME): No Obesity: Yes Renal Disease: No Tobacco Use: Former Prior Interventions PCI: No CABG: No Valve Surgery: No Report Signatures Finalized by Dr. Martin Vela MD on 09/29/2023 12:25 PM
[2023-09-29] MEDS: clopidogrel 300 mg Tablet 600 MG PO (10:25)
[2023-09-29] MEDS: heparin 5,000 unit/mL INJ 1 mL 4000 UNIT IVP (10:26)
--- NOTE | 2023-09-29 10:47 | PM.HP ---
Providers/Chief Complaint Admitting Physician: lashonda Primary Care Provider: Gagan Lomeli MD Chief Complaint: chest pains History of Present Illness Rocío A Day is a 52 year old female with no known history of coronary artery disease but with significant risk factors. Last evening around 11:00 she took some cough medicine because she has developed an upper respiratory infection from her . After that she became nauseated. She then developed discomfort in her chest which is described as a dull ache. She did not think anything about it. She went to bed and woke up this morning around 730. The pain came back around 8:00 and it was more severe but the same type of pain. That pain was associated with radiation up her left jaw and with diaphoresis and nausea. She did not vomit. She then came to the emergency room. Her first EKG was around 9:00 this morning. It showed ST elevation in lead III only with mild ST depression in leads I and L. There was also T wave inversion. She was being worked up and a second EKG at [address] elevation in leads II, III and aVF with similar ST segment depression and T wave inversions in lead I and L. It was at that point that the STEMI alert was called. She has been given Plavix, aspirin, sublingual nitroglycerin, bolus heparin, hydralazine 10 mg IV. Her creatinine is 1.1, glucose 184, first troponin 11 and a previous hemoglobin A1c is 10.4. She is being prepared for cardiac catheterization, however the pain is now gone. Review of Systems Narrative: Review of systems is negative. Medications/Allergies Home Medications Medication Instructions Recorded Confirmed Last Taken Type levonorgestrel 21 mcg/24 hours (8 See Rx Instructions .Route .COMPLEX 11/26/19 09/29/23 Unknown History yrs) 52 mg intrauterine device (Mirena) blood-glucose meter #1 ea 01/31/23 09/29/23 Unknown Rx blood sugar diagnostic (Immune System TherapeuticsTouch #100 ea 02/04/23 09/29/23 Unknown Rx Ultra Test strips) lancets 33 gauge (OneTouch Delica #100 ea 02/04/23 09/29/23 Unknown Rx Plus Lancet) clonidine HCl 0.1 mg tablet 0.1 mg PO DAILY PRN hypertensive 08/05/23 09/29/23 Unknown Rx emergency #30 tabs hydrocodone 7.5 mg-acetaminophen 1 tab PO Q6H PRN pain 30 days #120 08/30/23 09/29/23 09/29/23 04:00 Rx 325 mg tablet tabs codeine 10 mg-guaifenesin 100 mg/5 5 ml PO Q6H PRN cough 5 days #100 09/18/23 09/29/23 09/28/23 Rx mL oral liquid mL amlodipine 10 mg tablet 10 mg PO QAM 09/29/23 09/29/23 09/29/23 04:00 History atenolol 100 mg tablet 100 mg PO QAM 09/29/23 09/29/23 09/29/23 04:00 History lamotrigine 25 mg tablet (Lamictal) 75 mg PO QAM 09/29/23 09/29/23 09/29/23 04:00 History losartan 100 mg tablet 50 mg PO QAM 09/29/23 09/29/23 09/29/23 History see pharmacy comment metformin 500 mg tablet,extended 250 mg PO BID 09/29/23 09/29/23 09/29/23 History release 24 hr see pharmacy comment nystatin 100,000 unit/gram topical 1 applic topical TID PRN Rash 09/29/23 09/29/23 Unknown History cream semaglutide 0.25 mg or 0.5 mg (2 0.5 mg SUBCUT Q7D 09/29/23 09/29/23 09/22/23 History mg/3 mL) subcutaneous pen injector (Ozempic) venlafaxine 150 mg tablet,extended 150 mg PO QAM 09/29/23 09/29/23 09/29/23 04:00 History release 24 hr Allergies Allergy/AdvReac Type Severity Reaction Status Date / Time clarithromycin [From Biaxin] Allergy Pruritis, Verified 09/29/23 09:07 nausea dextromethorphan Allergy Vomiting Verified 09/29/23 09:07 moxifloxacin [From Avelox] Allergy Pruritis, Verified 09/29/23 09:07 nausea lisinopril AdvReac Mild ADR-Cough Verified 09/29/23 09:07 PFSH Acute PFSH: Medical History Hypertension Tobacco abuse counseling Opioid contract exists Encounter for long-term use of opiate analgesic Musculoskeletal back pain Smoker HGSIL (high grade squamous intraepithelial lesion) on Pap smear of cervix Patient was counseled regarding abnormal Pap smear results. Her Pap resulted in high-grade TARA. Women with this results have a 5 year DAVID-3+ risks of 47% and per current ACOG/ASSCP guidelines a colposcopy is indicated. She was counseled regarding colposcopy and an ACOG patient medication handout regarding abnormal Pap results and colposcopy was given. All questions were answered regarding colposcopy. Colposcopy was inadequate and a diagnostic excision as a cone biopsy is recommended. She was counseled regarding cone biopsy and elected to proceed with the procedure. She is scheduled for the diagnostic excisional procedure on 11/12/2018. Surgical History History of carpal tunnel surgery of left wrist Dr. Rodríguez History of cervical biopsy Cervical cone biopsy 11/12/2018 History of surgical removal of ganglion cyst History of bunionectomy History of cholecystectomy Family History Mother Diabetes Heart disease Family/Other Breast cancer Maternal Aunt Social History Smoking and tobacco/nicotine status: current every day tobacco/nicotine user cigarettes Packs smoked per day: 0.5 Alcohol intake: never Substance/Drug Use: never Additional social history: Well balanced diet Vitals/I&O/Wt Last Vital Signs Pulse 72 09/29/23 10:30 Resp 15 09/29/23 10:30 BP 155/82 09/29/23 10:30 Pulse Ox 100 09/29/23 10:30 O2 Del Method Room Air 09/29/23 08:59 Weight last 48 hrs Weight 220 lb Physical Exam Narrative: GENERAL: In general she is comfortable and free of pain now talking on the telephone. HEENT: Exam within normal limits. NECK: Supple without jugular vein distention. The carotid upstroke is normal without bruits. BACK: Exam normal. LUNGS: Clear. HEART: Regular rate and rhythm. ABDOMEN: Benign without organomegaly or tenderness. EXTREMITIES: No edema. NEUROLOGIC: Exam normal. SKIN: Unremarkable. Data 09/29/23 09:07 09/29/23 09:07 A&P Assessment and plan (1) Smoker: (2) Hypertension: (3) ST elevation myocardial infarction (STEMI): Qualifiers: Involved coronary artery: unspecified coronary artery Qualified Code(s): I21.3 - ST elevation (STEMI) myocardial infarction of unspecified site (4) Anxiety: (5) Opioid contract exists: (6) Diabetes: (7) Chronic pain: Plan I think we should go ahead and perform angiography since if we leave it alone she will have more trouble later in the day. This probably started brewing last night, came to a peak earlier this morning and has now been aborted essentially with medication. Attestations Medical Necessity Statement*: Admission for management of a subacute inferior wall myocardial infarction. Her stay will likely cross 2 midnights. and High Time for a total of 60 minutes, includes reviewing past or interval history, examining/interviewing patient, placing orders, counseling patient/family/other support, updating patient/family/other support, discussing plan of care with staff, documenting encounter and coordinating care Diagnoses Smoker F17.[address] elevation myocardial infarction (STEMI) I21.3 Involved coronary artery: unspecified coronary artery Anxiety F41.9 Opioid contract exists Z79.891 Diabetes E11.9 Chronic pain G89.29
[2023-09-29 12:13] LABS: Troponin 5 2HR 29.03 ng/L (0-10)
[2023-09-29 12:24] LABS: Troponin 5 2HR Delta 18.03 ABS# (0-10)
[2023-09-29] MEDS: sodium chloride 0.9% 1,000 ML 100 ML IV ×2 (12:30→21:49)
[2023-09-29] MEDS: HYDROcodone-acetaminophen 7.5-325 mg Tablet 1 TAB PO ×2 (14:26→20:23)
--- NOTE | 2023-09-29 14:53 | ECG_ITS ---
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 Measurements Intervals Almond Rate: 70 P: 52 AL: 146 QRS: 5 QRSD: 86 T: 62 QT: 392 QTc: 425 Interpretive Statements SINUS RHYTHM POSSIBLE LEFT ATRIAL ENLARGEMENT [-0.1mV P-WAVE IN V1/V2] POSSIBLE INFERIOR MYOCARDIAL INFARCTION , PROBABLY OLD [30 ms Q WAVE IN II/aVF] Compared to ECG 09/29/2023 10:10:51 ST (T wave) deviation no longer present Myocardial infarct finding still present Electronically Signed On 09-29-2023 19:54:29 ART EDUCATION PROFESSOR by Pollo Canales M.D. [email or web address]
[2023-09-29 15:56] LABS: Troponin 5 6HR 631.5 ng/L (0-10); Troponin 5 6HR Delta 620.5 ng/L (0-12)
[2023-09-29 18:07] LABS: Glucose Point of Care 238 mg/dL (70-110)
[2023-09-29] MEDS: insulin lispro 100 unit/1 mL SUBCUT (18:37)
[2023-09-29 21:23] LABS: Glucose Point of Care 129 mg/dL (70-110)
[2023-09-30] VITALS: BP 140/80; PULSE 72; RESP 13; O2SAT 92
[2023-09-30] MEDS: HYDROcodone-acetaminophen 7.5-325 mg Tablet 1 TAB PO ×2 (02:13→08:34)
[2023-09-30 04:00] VITALS: BP 148/84; PULSE 67; RESP 12; O2SAT 97
[2023-09-30 06:00] VITALS: PULSE 75
[2023-09-30 06:30] VITALS: BP 154/103
[2023-09-30] MEDS: atenolol 50 mg Tablet 100 MG PO (06:30)
[2023-09-30] MEDS: losartan 50 mg Tablet PO (06:30)
[2023-09-30] MEDS: lamoTRIgine 25 mg Tablet 75 MG PO (06:30)
[2023-09-30] MEDS: venlafaxine ER (24HR) 150 mg Capsule PO (06:31)
[2023-09-30] MEDS: amlodipine 10 mg Tablet PO (06:34)
[2023-09-30 06:45] LABS: Glucose Point of Care 169 mg/dL (70-110)
--- NOTE | 2023-09-30 07:31 | P.DS_ITS ---
Discharge Providers Date of Admission: 09/29/23 12:16 Date of Discharge: September 30, 2023 Attending Provider at Admission: Martin Vela MD Attending Provider at Discharge: Martin Vela MD Primary Care Provider: Gagan Lomeli MD Diagnoses at Discharge Discharge Diagnosis (1) Smoker: Status: Chronic (2) Hypertension: Status: Acute (3) ST elevation myocardial infarction (STEMI): Status: Acute Qualifiers: Involved coronary artery: unspecified coronary artery Qualified Code(s): I21.3 - ST elevation (STEMI) myocardial infarction of unspecified site (4) Anxiety: Status: Acute (5) Opioid contract exists: Status: Chronic (6) Diabetes: Status: Acute (7) Chronic pain: Status: Acute Reason for Visit Reason for Visit: chest pains Brief History: Patient is 52 years old with multiple risk factors for coronary artery disease. She began having chest discomfort about 12 hours before admission. Upon arrival to the emergency room she had ST elevation in 1-lead only, lead III. [address] later she had ST elevation in leads II, III and aVF. She received Plavix, aspirin and heparin in the emergency room and the pain went away completely. Because of the ST elevation I planned urgent angiography. Hospital Course Hospital Course Angiography revealed a left dominant system. The ostial portion of the second obtuse marginal branch which could also be considered the left posterior descending artery was nearly totally occluded with GABRIEL I flow. It was somewhat difficult to place a wire in a balloon in this vessel due to the position and due to the short left main. The vessel underwent angioplasty and stenting with a good result. The procedure was done from the right radial artery. There were no complications. The small nondominant right coronary artery is occluded. There is some collateral flow from the circumflex. She has 2 ramus intermedius branches which are patent and the LAD is normal. Immediately upon completion of the angiogram she began complaining that she wanted to go home. At the time of discharge there are no complications. Her right radial artery area is flat, dry and without hematoma or bleeding. Her creatinine is 1.1. Her glomerular filtration rate is 52. Blood sugars were in the high 100s to high 200s. Initial troponin was 11, 2-hour troponin 29 and 6- hour troponin 631. She was started on aspirin, Plavix and a statin. She is already on a beta-brown and an angiotensin receptor brown. Physical Exam Narrative: GENERAL: In general she looks and feels well this morning HEENT: Exam within normal limits. NECK: Supple without jugular vein distention. The carotid upstroke is normal without bruits. BACK: Exam normal. LUNGS: Clear. HEART: Regular rate and rhythm. ABDOMEN: Benign without organomegaly or tenderness. EXTREMITIES: No edema. The right radial artery area is flat, dry and without bleeding at the time of discharge. There is a good radial pulse. NEUROLOGIC: Exam normal. SKIN: Unremarkable. Discharge Data Studies Completed and Pending Completed Studies During Hospitalization Category Date Time Status TECHNICAL HEALTHCARE CONSULTANT request for service Stat Exams 09/29/23 10:23 Completed XR chest 1V portable [id number] Stat Exams 09/29/23 08:52 Completed Radiology Impressions Chest X-Ray 09/29/23 08:52 IMPRESSION: No acute findings. Laboratory Results WBC 11.53 10^3/uL (3.29-11.43) H 09/29/23 09:07 RBC 5.18 10^6/uL (3.85-5.65) 09/29/23 09:07 Hgb 15.60 g/dL (11.27-16.99) 09/29/23 09:07 Hct 47.0 % (36-47) 09/29/23 09:07 MCV 90.7 fl (85-98) 09/29/23 09:07 MCH 30.1 pg (27-33) 09/29/23 09:07 MCHC 33.2 g/dL (30-55) 09/29/23 09:07 RDW 13.1 % (12.1-15.1) 09/29/23 09:07 Plt Count 295 10^3/cmm (157-399) 09/29/23 09:07 MPV 9.5 fL (7.4-10.4) 09/29/23 09:07 Neut % (Auto) 65.9 % 09/29/23 09:07 Lymph % (Auto) 21.9 % 09/29/23 09:07 Moffat % (Auto) 8.0 % 09/29/23 09:07 Eos % (Auto) 2.2 % 09/29/23 09:07 Baso % (Auto) 1.0 % 09/29/23 09:07 Neut # (Auto) 7.60 10^3/uL (1.8-7.7) 09/29/23 09:07 Lymph # (Auto) 2.5 10^3/uL (0.8-4.8) 09/29/23 09:07 Moffat # (Auto) 0.9 10^3/uL (0.2-0.9) 09/29/23 09:07 Eos # (Auto) 0.3 10^3/uL (0.0-0.8) 09/29/23 09:07 Baso # (Auto) 0.1 10^3/uL (0.0-0.1) 09/29/23 09:07 Nucleated RBC % (auto) 0 % 09/29/23 09:07 Nucleated RBCs # 0.0 /100WBC 09/29/23 09:07 PT 12.20 SECONDS (12.1-14.9) 09/29/23 09:07 INR 0.88 (0.8-1.2) 09/29/23 09:07 Sodium 136 mmol/L (136-145) 09/29/23 09:07 Potassium 4.4 mmol/L (3.5-5.1) 09/29/23 09:07 Chloride 100 mmol/L (98-107) 09/29/23 09:07 Carbon Dioxide 24 mmol/L (22-29) 09/29/23 09:07 Anion Gap 16.4 (5-19) 09/29/23 09:07 BUN 15 mg/dL (6-20) 09/29/23 09:07 Creatinine 1.1 mg/dL (0.5-0.9) H 09/29/23 09:07 GFR Calculation 52.2 mL/min (90-130) L 09/29/23 09:07 Glucose 184 mg/dL (65-115) H 09/29/23 09:07 POC Glucose 169 mg/dL (70-110) H 09/30/23 06:29 Calculated Osmolality 288 mOsm/kg (285-295) 09/29/23 09:07 Calcium 9.9 mg/dL (8.5-10.5) 09/29/23 09:07 Total Bilirubin 0.3 mg/dL (0.15-1.2) 09/29/23 09:07 AST 15 U/L (0-32) 09/29/23 09:07 ALT 31 U/L (0-33) 09/29/23 09:07 Alkaline Phosphatase 94 U/L (35-105) 09/29/23 09:07 Troponin T Baseline 11 ng/L (0-10) H 09/29/23 09:07 Troponin T 120 Minute 29.03 ng/L (0-10) H 09/29/23 11:05 Delta Troponin T 18.03 ABS# (0-10) H* 09/29/23 11:05 Troponin T Hi Sens 6Hr 631.5 ng/L (0-10) H 09/29/23 15:03 Troponin T Hi Sens 6Hr Delta 620.5 ng/L (0-12) H* 09/29/23 15:03 Total Protein 7.8 g/dL (6.6-8.7) 09/29/23 09:07 Albumin 4.4 g/dL (3.5-5.2) 09/29/23 09:07 Globulin 3.4 g/dL (1.3-4.6) 09/29/23 09:07 Lipase 24 U/L (13-60) 09/29/23 09:07 Procedures Performed Left heart catheterization, coronary angiography, left ventriculography, angioplasty and stenting second obtuse marginal branch. Vitals Last Vital Signs Temp 99.0 F 09/29/23 19:58 Pulse 75 09/30/23 06:00 Resp 12 09/30/23 04:00 BP 154/103 09/30/23 06:30 Pulse Ox 97 09/30/23 04:00 O2 Del Method Room Air 09/30/23 04:00 Discharge Plan Discharge Patient Disposition: Home Condition: Stable Prescriptions: New aspirin 81 mg Tablet,Delayed Release (Dr/Ec) 81 mg PO DAILY Qty: 100 8RF clopidogrel 75 mg Tablet 75 mg PO DAILY Qty: 90 2RF nitroglycerin 0.4 mg tablet, sublingual 0.4 mg sublingual Q5M PRN (Reason: chest pain) Qty: 25 4RF Rx Instructions: do not exceed 3 doses per episode rosuvastatin 10 mg tablet 10 mg PO DAILY Qty: 90 6RF Continued Mirena 20 mcg/24 hours (5 yrs) 52 mg intrauterine device See Rx Instructions .ROUTE .COMPLEX Rx Instructions: intrauterinely codeine-guaifenesin 10-100 mg/5 mL liquid 5 ml PO Q6H PRN (Reason: cough) 5 Days Qty: 100 0RF (DME) blood-glucose meter Kit See Rx Instructions .ROUTE .MEDSUPPLY Qty: 1 0RF Rx Instructions: As directed clonidine HCl 0.1 mg tablet 0.1 mg PO DAILY PRN (Reason: hypertensive emergency) Qty: 30 0RF Rx Instructions: WHEN BP IS > 170 (DME) lancets [OneTouch Delica Plus Lancet] 33 gauge misc See Rx Instructions .ROUTE .MEDSUPPLY Qty: 100 12RF Rx Instructions: As directed (DME) OneTouch Ultra Test Strip See Rx Instructions .Route Qty: 100 12RF Rx Instructions: As directed hydrocodone-acetaminophen 7.5-325 mg tablet 1 tab PO Q6H PRN (Reason: pain) 30 Days Qty: 120 0RF atenolol 100 mg tablet 100 mg PO QAM Lamictal 25 mg tablet 75 mg PO QAM amlodipine 10 mg tablet 10 mg PO QAM nystatin 100,000 unit/gram cream 1 applic topical TID PRN (Reason: Rash) losartan 100 mg tablet 50 mg PO QAM metformin 500 mg tablet extended release 24 hr 250 mg PO BID venlafaxine 150 mg tablet extended release 24hr 150 mg PO QAM Ozempic 0.25 mg or 0.5 mg (2 mg/3 mL) pen injector 0.5 mg SUBCUT Q7D Rx Instructions: on saturday Referrals: Gagan Lomeli MD [Primary Care Provider] - Discharge Diet: Diabetic Discharge Activity: Limit activity as instructed Patient Instructions: Opioid Safety Activity Restrictions/Additional Instructions: No lifting over 5 pounds for 2 days with the right arm. Hold metformin until October 02. Discharge Attestations Time Spent in Discharge Care*: greater than 30 min Quality Metrics Clinical Quality Measures [ Acute Myocardial Infaction { Clinical Trial Participant: No; Contraindication to aspirin: None; Aspirin prescribed; Contraindication to statin: None; Statin prescribed; Contraindication to PCI: None; PCI performed;}] Coding Level of Care Code 07267 Total time (in minutes) for Discharge: 50 Diagnoses Smoker F17.[address] elevation myocardial infarction (STEMI) I21.3 Involved coronary artery: unspecified coronary artery Anxiety F41.9 Opioid contract exists Z79.891 Diabetes E11.9 Chronic pain G89.29
[2023-09-30] MEDS: clopidogrel 75 mg Tablet PO (08:35)
[2023-09-30] MEDS: aspirin 81 mg EC Tablet PO (08:35)
[2023-09-30] MEDS: insulin lispro 100 unit/1 mL SUBCUT (08:36)
[2023-09-30 08:44] VITALS: BP 148/68; PULSE 78; RESP 20; TEMP 36.6; O2SAT 96
[2023-09-30 10:26] VITALS: BP 148/68; PULSE 78; RESP 20; TEMP 36.6; O2SAT 96
== END 2023-09-30 10:50 | disposition home or self-care (01) ==
LOC: ER 10:34 → CCL 10:46 → CSU 14:53
PROVIDERS: Admitting Provider Internal Medicine Cardiovascular Disease; Emergency Provider Emergency Medicine; PCP Family Medicine; Visit Provider Internal Medicine Cardiovascular Disease
DX: I21.3 ST elevation (STEMI) myocardial infarction of unspecified site (principal); I10 Essential (primary) hypertension; F41.9 Anxiety disorder, unspecified; Z79.891 Long term (current) use of opiate analgesic; E11.9 Type 2 diabetes mellitus without complications; G89.29 Other chronic pain; I25.10 Atherosclerotic heart disease of native coronary artery without angina pectoris; Z79.84 Long term (current) use of oral hypoglycemic drugs; F17.210 Nicotine dependence, cigarettes, uncomplicated; E66.9 Obesity, unspecified; Z68.36 Body mass index [BMI] 36.0-36.9, adult; Z87.891 Personal history of nicotine dependence
CPT/HCPCS: 36415; 36416; 71045; 80053; 82962; 83690; 84484; 85025; 85610; 93005; 93458; 96365; 96372; 96376; 99152; 99153; 99285; C1725; C1769; C1874; C1887; C1894; C9600; G0378; J1644; J1815; J2250; J3010; J3490; J7030; Q9967

== ENCOUNTER 2023-10-09 10:23 | Outpatient (CLI) | payer BC, SELFPAY ==
--- NOTE | 2023-10-09 10:36 | XRR_ITS ---
PROCEDURE INFORMATION: Exam: XR Left Hip Exam date and time: 10/09/2023 10:45 AM Age: 52 years old Clinical indication: Hip pain; Left hip; Additional info: Left hip pain TECHNIQUE: Imaging protocol: Radiologic exam of the left hip. Views: 2 or 3 views hip with pelvis when performed. COMPARISON: CT chest abdpel w/*[id number] 03/14/2021 10:58 AM FINDINGS: Bones/joints: Femoroacetabular alignment is normal. Joint space is preserved. The proximal femur is intact. The visible portion of the pelvis is intact. Soft tissues: Visible soft tissues are unremarkable. XR/XR hip LT 2-3V wo/w pel* [id number] IMPRESSION: No acute findings.
--- NOTE | 2023-10-09 10:36 | XRR_ITS ---
PROCEDURE INFORMATION: Exam: XR Left Shoulder Exam date and time: 10/09/2023 10:45 AM Age: 52 years old Clinical indication: Pain; Shoulder; Left; Additional info: Left shoulder pain TECHNIQUE: Imaging protocol: Radiologic exam of the left shoulder. Views: 2 or more views. COMPARISON: [place] [id number] 11/29/2021 1:43 AM FINDINGS: Bones/joints: Normal. Soft tissues: Normal. XR/XR shoulder LT min 2V* [id number] IMPRESSION: No acute findings.
[2023-10-09 11:05] LABS: Blood Urea Nitrogen 11 mg/dL (6-20); Calcium 9.9 mg/dL (8.5-10.5); Carbon Dioxide 26 mmol/L (22-29); Chloride 101 mmol/L (98-107); Glomerular Filtration Rate 52.2 mL/min (90-130); Glucose 152 mg/dL (65-115); Osmolality Calculated 286 mOsm/kg (285-295); Sodium 137 mmol/L (136-145)
[2023-10-09 11:10] LABS: Anion Gap 14.8 (5-19); Potassium 4.8 mmol/L (3.5-5.1)
== END 2023-10-09 10:24 | disposition home or self-care (01) ==
PROVIDERS: Nurse Practitioner Family; PCP Family Medicine; Visit Provider Family Medicine
DX: M25.512 Pain in left shoulder (principal); M25.552 Pain in left hip; I21.3 ST elevation (STEMI) myocardial infarction of unspecified site; I25.10 Atherosclerotic heart disease of native coronary artery without angina pectoris
CPT/HCPCS: 36415; 73030; 73502; 80048

== ENCOUNTER 2023-11-01 10:47 | Outpatient (CLI) | payer BC, SELFPAY ==
--- NOTE | 2023-11-01 11:00 | MR_ITS ---
WS: [id number] MRI LEFT SHOULDER NONCONTRAST TECHNIQUE: Sagittal T2, coronal T1, T2 and proton density imaging. Axial gradient PDE imaging. CLINICAL INFORMATION: Left shoulder pain COMPARISON: None. FINDINGS: Mild degenerative arthritis AC joint with mild edema. Slight narrowing of the subacromial space. Trac e subacromial fluid. Normal supraspinatus. Normal infraspinatus. Normal teres minor. Normal biceps te ndon in the bicipital groove. Increased T2 signal abnormality long head biceps tendon and adjacent gray bscapularis tendon insertion with fluid signal consistent with tendinopathy and partial tear. No significant joint effusion. Biceps labral anchor appears intact. Glenoid labrum appears grossly no rmal. Normal bone marrow signal in the humerus and glenoid. IMPRESSION: 1. Mild degenerative arthritis AC joint with mild edema. Mild narrowing of the subacromial space. 2. Biceps tendon intact within the bicipital groove. 3. Increased T2 signal abnormality long head biceps tendon and adjacent subscapularis tendon inserti on consistent with tendinopathy and partial tear. 4. Rotator cuff is otherwise normal. 5. Glenoid labrum appears grossly normal. 6. No other acute findings.
== END 2023-11-01 10:48 | disposition home or self-care (01) ==
LOC: RAD 10:48
PROVIDERS: PCP Family Medicine; Visit Provider Family Medicine
DX: M19.012 Primary osteoarthritis, left shoulder (principal); M67.922 Unspecified disorder of synovium and tendon, left upper arm
CPT/HCPCS: 73221

== ENCOUNTER → 2023-12-11 09:03 | Outpatient (BNVA) | payer BC, SELFPAY | PROVIDERS: PCP Family Medicine; Visit Provider Family Medicine | DX: E11.9 Type 2 diabetes mellitus without complications (principal); R61 Generalized hyperhidrosis | CPT/HCPCS: 83001; 83036 ==

== ENCOUNTER → 2024-01-06 14:53 | Outpatient (BNVA) | payer BC, SELFPAY | PROVIDERS: PCP Family Medicine; Visit Provider Family Medicine | DX: Z01.419 Encounter for gynecological examination (general) (routine) without abnormal findings (principal) | CPT/HCPCS: 87491; 87591; 87624; 87661 ==

== ENCOUNTER 2024-01-15 08:12 | Outpatient (CLI) | payer BC, SELFPAY ==
--- NOTE | 2024-01-15 08:30 | MM_ITS ---
WS: [id number] SCREENING DIGITAL BREAST TOMOSYNTHESIS MAMMOGRAM WITH CAD HISTORY: Screening COMPARISON: None available. Bilateral CC and MLO with tomosynthesis and synthetic mammography submitted. Computer aided detection analyzed. Breast composition: There are scattered areas of fibroglandular density. Subtle area of architectural distortion and increased density in the upper outer quadrant of the RIGHT breast at a middle depth. No masslike structure associated with the distortion. The LEFT breast is negative. IMPRESSION: MM/[place] [id number] BI-RADS: 0-Incomplete: Need additional imaging evaluation FOLLOW UP: Need Additional Imaging RIGHT breast: Spot compression views (CC and MLO). True ML. Ultrasound to follo w if abnormality persists.
--- NOTE | 2024-01-15 09:15 | US_ITS ---
WS: [id number] US transvaginal [id number] HISTORY: IUD strings not seen - check to see if still present COMPARISON: None available. Uterus: 6.7 cm x 4.1 cm x 4.1 cm. Uterus is very heterogeneous and slightly retroflexed. Endometrium: 0.9 cm. IUD is noted along the endometrial canal. Short segment of the IUD strings are i dentified which may be coiled adjacent to the distal IUD in the cervix. Strings are not identified th rough the entire cervical canal. Right ovary: 2.1 cm x 1.0 cm x 2.2 cm. Normal size and vascularity, no cystic or solid masses. Left ovary: 2.2 cm x 1.6 cm x 2.6 cm. Normal size and vascularity, no cystic or solid masses. No free fluid in the cul-de-sac. IMPRESSION: 1. Normal position of the IUD. 2. Only a short segment of the strings associated with the IUD identified just distal to the IUD in the cervical canal. 3. Mildly heterogeneous uterus.
== END 2024-01-15 08:13 | disposition home or self-care (01) ==
LOC: RAD 08:13
PROVIDERS: PCP Family Medicine; Visit Provider Family Medicine
DX: Z12.31 Encounter for screening mammogram for malignant neoplasm of breast (principal); T83.32XA Displacement of intrauterine contraceptive device, initial encounter; R92.30 Dense breasts, unspecified
CPT/HCPCS: 76830; 77063; 77067

== ENCOUNTER 2024-02-04 12:53 | Outpatient (CLI) | payer BC, SELFPAY ==
--- NOTE | 2024-02-04 13:00 | MM_ITS ---
WS: [email or web address] ADDITIONAL VIEWS RIGHT MAMMOGRAM WITH DIGITAL BREAST TOMOSYNTHESIS. RIGHT BREAST ULTRASOUND HISTORY: Abnormal mammogram COMPARISON: 01/15/2024 RIGHT MAMMOGRAM: Spot compression views and true ML with digital breast tomosynthesis and SM. Asymmetry persists but becomes less apparent in the upper outer quadrant of the RIGHT breast at a mid dle depth. No distortion. There is just mild asymmetry remaining. RIGHT BREAST ULTRASOUND 2-D and color Doppler imaging submitted. No abnormality noted upper outer quadrant RIGHT breast. IMPRESSION: MM/[place] [id number] BI-RADS: 2-Benign FOLLOW UP: 1 Year Follow-up No persistent abnormality in the RIGHT breast. Return to annual screening mammo graphy.
--- NOTE | 2024-02-04 13:30 | US_ITS ---
WS: [id number] ADDITIONAL VIEWS RIGHT MAMMOGRAM WITH DIGITAL BREAST TOMOSYNTHESIS. RIGHT BREAST ULTRASOUND HISTORY: Abnormal mammogram COMPARISON: 01/15/2024 RIGHT MAMMOGRAM: Spot compression views and true ML with digital breast tomosynthesis and SM. Asymmetry persists but becomes less apparent in the upper outer quadrant of the RIGHT breast at a mid dle depth. No distortion. There is just mild asymmetry remaining. RIGHT BREAST ULTRASOUND 2-D and color Doppler imaging submitted. No abnormality noted upper outer quadrant RIGHT breast. IMPRESSION: US/US breast RT limited* [id number] BI-RADS: 2-Benign FOLLOW UP: 1 Year Follow-up No persistent abnormality in the RIGHT breast. Return to annual screening mammo graphy.
== END 2024-02-04 12:54 | disposition home or self-care (01) ==
LOC: RAD 12:54
PROVIDERS: PCP Family Medicine; Visit Provider Family Medicine
DX: R92.8 Other abnormal and inconclusive findings on diagnostic imaging of breast (principal)
CPT/HCPCS: 76642; 77061; G0279

== ENCOUNTER 2024-04-02 05:27 | Day surgery (SDC) | payer BC, SELFPAY ==
[2024-04-02] VITALS (10 sets, daily range): BP systolic 123–162; BP diastolic 60–109; PULSE 69–76; RESP 12–18; TEMP 36.3–36.9; O2SAT 91–98; BMI 34.3
--- NOTE | 2024-04-02 01:14 | W.PM.OPSFHP ---
Same Day Surgery H&P Indication for Procedure/HPI DATE OF PROCEDURE: April 02, 2024 CHIEF COMPLAINT/INDICATIONFOR SURGICAL PROCEDURE: intrauterine device in place with lost strings PREOP DIAGNOSIS: intrauterine device in place with lost strings PLANNED PROCEDURE: Operation Date: 04/02/24 07:00 Proposed Procedures p Hysteroscopy 04409, 81791, T83.32XA(Not Applicable) - Luis Alberto Goodwin MD s Hysteroscopic IUD Removal(Not Applicable) - Luis Alberto Goodwin MD 53 y.o. Has an IUD placed 5-6 years ago Has lost strings Now wants removal Medications/Allergies* Home Medications Medication Instructions Recorded Confirmed Type levonorgestrel 21 mcg/24 hr (up to See Rx Instructions .Route .COMPLEX 11/26/19 04/01/24 History 8 years) 52 mg intrauterine device (Mirena) losartan 100 mg tablet 50 mg .Route .COMPLEX 03/16/24 04/01/24 History Allergies/Adverse Reactions Allergy/AdvReac Type Severity Reaction Status Date / Time clarithromycin [From Biaxin] Allergy Pruritis, Verified 03/16/24 11:38 nausea dextromethorphan Allergy Vomiting Verified 03/16/24 11:38 moxifloxacin [From Avelox] Allergy Pruritis, Verified 03/16/24 11:38 nausea lisinopril AdvReac Mild ADR-Cough Verified 03/16/24 11:38 Pertinent History/Comorbid Conditions* Medical History (Updated 03/15/24 @ 07:43 by Gagan Lomeli MD) Hypertension Tobacco abuse counseling Opioid contract exists Encounter for long-term use of opiate analgesic Musculoskeletal back pain Smoker HGSIL (high grade squamous intraepithelial lesion) on Pap smear of cervix Patient was counseled regarding abnormal Pap smear results. Her Pap resulted in high-grade TARA. Women with this results have a 5 year DAVID-3+ risks of 47% and per current ACOG/ASSCP guidelines a colposcopy is indicated. She was counseled regarding colposcopy and an ACOG patient medication handout regarding abnormal Pap results and colposcopy was given. All questions were answered regarding colposcopy. Colposcopy was inadequate and a diagnostic excision as a cone biopsy is recommended. She was counseled regarding cone biopsy and elected to proceed with the procedure. She is scheduled for the diagnostic excisional procedure on 11/12/2018. Surgical History (Updated 10/05/23 @ 07:44 by Gagan Lomeli MD) Hx of heart artery stent Stent placed in the PDA by Dr Vela - 09/2023 History of carpal tunnel surgery of left wrist Dr. Rodríguez History of cervical biopsy Cervical cone biopsy 11/12/2018 History of surgical removal of ganglion cyst History of bunionectomy History of cholecystectomy Family History (Updated 03/03/24 @ 11:06 by Emilie Hardwick LPN) Diabetes Mother Father Heart disease Mother Father Hypercholesteremia Mother Hypertension Mother Father Denies family history of Colon cancer Ovarian cancer Prostate cancer Breast cancer Uterine cancer Thyroid disease Stroke Social History Smoking and tobacco/nicotine status: current every day tobacco/nicotine user Pertinent Exam Findings alert, oriented x 3, clear to auscultation bilaterally and regular rate & rhythm Pertinent Data Pelvic sono 01-15-24 IUD in endometrial canal Normal ovaries Pap 01-06-24 NILM, negative HPV Recommendations Surgery/Procedure today Coding Level of Care Code Acute Code for Chg Fwd Time Spent (min) 20
[2024-04-02 06:33] LABS: Glucose Point of Care 148 mg/dL (70-110)
--- NOTE | 2024-04-02 06:35 | SUR.PREOP ---
Patient states she is post-menopausal and has not had a cycle in years. refuses hcg test
[2024-04-02] MEDS: sodium chloride 0.9% 1,000 ML 30 ML IV (06:36)
--- NOTE | 2024-04-02 06:39 | ANES.PREANE2 ---
Pre-Anesthetic Assessment Height/Weight: Height 1.68 m Weight 96.615 kg Temp Pulse Resp BP Pulse Ox O2 Del Method 98.4 F 69 18 134/77 98 Room Air 04/02/24 06:07 04/02/24 06:07 04/02/24 06:07 04/02/24 06:07 04/02/24 06:07 04/02/24 06:07 Preop Diagnosis: lost intrauterine device strings Operation Date: 04/02/24 07:00 Proposed Procedures p Hysteroscopy 90639, 98103, T83.32XA(Not Applicable) - Luis Alberto Goodwin MD s Hysteroscopic IUD Removal(Not Applicable) - Luis Alberto Goodwin MD Familial anesthetic complications: None Was Beta Efrem taken within 24 hours: N/A Was Clonidine taken within 24 hours: N/A Last intake: Intake Last Liquid Date 04/01/24 Last Liquid Time 23:00 Last Solid Date 04/01/24 Last Solid Time 23:00 Social No alcohol and No tobacco Exam alert, oriented x 3, clear to auscultation bilaterally and regular rate & rhythm Airway Mallampati: Class II Dentition: other (Multiple missing) CV/HEM Hypertension and Myocardial Infarction (RCA stent placed in september - will continue anticoagulation perioperatively) Metabolic Diabetes Mellitus and Morbid Obesity Anesthetic Plan ASA status: 4 Anesthesia: General Risk of > 500 ml blood loss (7ml/kg in children): No Medications/Allergies Home Medications Medication Instructions Recorded Confirmed Last Taken Type levonorgestrel 21 mcg/24 hr (up to See Rx Instructions .Route .COMPLEX 11/26/19 04/01/24 04/01/24 History 8 years) 52 mg intrauterine device (Mirena) blood-glucose meter #1 ea 01/31/23 03/11/24 Unknown Rx blood sugar diagnostic (OneTouch #100 ea 02/04/23 03/11/24 Unknown Rx Ultra Test strips) lancets 33 gauge (OneTouch Delica #100 ea 02/04/23 03/11/24 Unknown Rx Plus Lancet) clonidine HCl 0.1 mg tablet 0.1 mg PO DAILY PRN hypertensive 08/05/23 04/01/24 Unknown Rx emergency #30 tabs aspirin 81 mg tablet,delayed 81 mg PO DAILY #100 tabs 09/30/23 04/01/24 04/01/24 Rx release clopidogrel 75 mg tablet 75 mg PO DAILY #90 tabs 09/30/23 04/01/24 04/02/24 Rx nitroglycerin 0.4 mg sublingual 0.4 mg sublingual Q5M PRN chest 09/30/23 04/01/24 03/18/24 Rx tablet pain #25 tabs rosuvastatin 10 mg tablet 10 mg PO DAILY #90 tabs 09/30/23 04/01/24 04/02/24 Rx metformin 500 mg tablet,extended 250 mg (1/2 x 500 mg) PO BID #90 10/04/23 04/01/24 04/01/24 Rx release 24 hr tabs atenolol 100 mg tablet 100 mg PO QAM #90 tabs 10/22/23 04/01/24 04/02/24 04:30 Rx albuterol sulfate 90 mcg/actuation 2 puff inhalation Q6H PRN 10/23/23 04/01/24 03/31/24 Rx aerosol inhaler (ProAir HFA) shortness of breath or wheezing #8.5 grams venlafaxine 225 mg tablet,extended 225 mg PO DAILY #30 tabs 10/23/23 04/01/24 04/02/24 Rx release 24 hr amlodipine 10 mg tablet 10 mg PO QAM #90 tabs 10/28/23 04/01/24 04/02/24 Rx lamotrigine 25 mg tablet See Rx Instructions .Route 11/06/23 04/01/24 04/01/24 Rx .COMPLEX #270 tabs guanfacine 1 mg tablet 1 mg PO DAILY #30 tabs 02/20/24 04/01/24 04/02/24 Rx tirzepatide 2.5 mg/0.5 mL 2.5 mg (0.5 mL) SUBCUT Q7D #2 mL 02/21/24 04/01/24 03/21/24 Rx subcutaneous pen injector hydrocodone 7.5 mg-acetaminophen 1 tab PO Q6H PRN pain 30 days #120 03/11/24 04/01/24 04/02/24 Rx 325 mg tablet tabs losartan 100 mg tablet 50 mg .Route .COMPLEX 03/16/24 04/01/24 04/01/24 History Allergies Allergy/AdvReac Type Severity Reaction Status Date / Time clarithromycin [From Biaxin] Allergy Pruritis, Verified 03/16/24 11:38 nausea dextromethorphan Allergy Vomiting Verified 03/16/24 11:38 moxifloxacin [From Avelox] Allergy Pruritis, Verified 03/16/24 11:38 nausea lisinopril AdvReac Mild ADR-Cough Verified 03/16/24 11:38 Current Medications Generic Name Dose Route Start Last Admin Trade Name Freq PRN Reason Stop Dose Admin Sodium Chloride 1,000 mls @ 30 mls/hr 04/02/24 06:00 04/02/24 06:36 Sodium Chloride 0.9% IV 04/03/24 05:59 30 mls/hr .Q24H ROSETTA Administration PFSH Anesthesia Medical History Hypertension Tobacco abuse counseling Opioid contract exists Encounter for long-term use of opiate analgesic Musculoskeletal back pain Smoker HGSIL (high grade squamous intraepithelial lesion) on Pap smear of cervix Patient was counseled regarding abnormal Pap smear results. Her Pap resulted in high-grade TARA. Women with this results have a 5 year DAVID-3+ risks of 47% and per current ACOG/ASSCP guidelines a colposcopy is indicated. She was counseled regarding colposcopy and an ACOG patient medication handout regarding abnormal Pap results and colposcopy was given. All questions were answered regarding colposcopy. Colposcopy was inadequate and a diagnostic excision as a cone biopsy is recommended. She was counseled regarding cone biopsy and elected to proceed with the procedure. She is scheduled for the diagnostic excisional procedure on 11/12/2018. Surgical History Hx of heart artery stent Stent placed in the PDA by Dr Vela - 09/2023 History of carpal tunnel surgery of left wrist Dr. Rodríguez History of cervical biopsy Cervical cone biopsy 11/12/2018 History of surgical removal of ganglion cyst History of bunionectomy History of cholecystectomy Family History Mother Diabetes Heart disease Hypertension Hypercholesteremia Family/Other No problems noted. Father Diabetes Heart disease Hypertension Denies family history of Colon cancer Ovarian cancer Prostate cancer Breast cancer Uterine cancer Thyroid disease Stroke Social History Smoking and tobacco/nicotine status: current every day tobacco/nicotine user Female Reproductive History Date of last menstrual period: 03/19/18 Data Anesthesia Cardiac Studies: No Data to Display
--- NOTE | 2024-04-02 06:56 | W.PM.OPSUD ---
Surgery/Procedure H&P Update DATE OF PROCEDURE: April 02, 2024 DATE H&P PERFORMED: 04/02/24 H&P UPDATE INFORMATION: I have reviewed H&P completed within last 30 days, I have examined patient prior to procedure and No changes to prior documentation PREOP DIAGNOSIS: lost intrauterine device strings PLANNED PROCEDURE: Operation Date: 04/02/24 07:00 Proposed Procedures p Hysteroscopy 37455, 37176, T83.32XA(Not Applicable) - Luis Alberto Goodwin MD s Hysteroscopic IUD Removal(Not Applicable) - Luis Alberto Goodwin MD
--- NOTE | 2024-04-02 08:02 | PM.OP ---
Operative Report Date of procedure: April 02, 2024 Pre-op diagnosis: intrauterine device with lost strings Post-op diagnosis: same Post-op findings: normal endometrial cavity No polyps / fibroids Minimal endometrial tissue Intrauterine device in endometrial cavity, intact and complete Endometrial cavity intact following procedure Procedure done: hysteroscopy removal of intrauterine device Implants: none Specimens removed/disposition: intrauterine device, discarded Surgeon: Luis Alberto Goodwin MD Anesthesia: General Estimated blood loss (mL): 0 Complications: none Findings: normal endometrial cavity No polyps / fibroids Minimal endometrial tissue Intrauterine device in endometrial cavity, intact and complete Endometrial cavity intact following procedure Condition: stable Disposition: PACU Brief History: 53 y.o. with intrauterine device for removal, with lost strings Procedure: Informed consent signed. Patient was taken to the operating room. Anesthesia was induced. Patient was placed in dorsolithotomy position, prepped and draped for hysteroscopy. A bivalve speculum was placed in the vagina. The anterior lip of the cervix was grasped with a sharp-toothed tenaculum. The cervix was serially dilated with Hegar dilators. . A hysteroscope was placed into the endometrial cavity. The endometrial cavity was seen to be normal. There were no polyps or fibroids. There was a minimal amount of endometrial tissue. The intrauterine device was seen in the endometrial cavity. The device was removed using a hysteroscopic grasper. The intrauterine device was seen to be complete and intact and this was discarded. The endometrial cavity was seen to be intact. The hysteroscope was then removed. The sharp-toothed tenaculum was removed. There was no bleeding from the endometrial cavity or cervix. The patient was then placed supine and awakened and taken to the PACU. Postop condition: stable EBL: none Sponge and instruments counts were normal x 2 Complications: none
--- NOTE | 2024-04-02 08:45 | ANE.PACU2 ---
Inpatient post-anesthesia follow up: Airway intact: Yes Vital signs: Temperature 97.8 F Pulse Rate 70 Respiratory Rate 18 Blood Pressure 126/60 Pulse Oximetry 91 Oxygen Delivery Me thod Room Air Oxygen Flow Rate 6 Fraction of Inspir ed Oxygen Hydration adequate: Yes Nausea and vomiting: No Pain level: 1 Mental status: Baseline
== END 2024-04-02 08:45 | disposition home or self-care (01) ==
PROVIDERS: PCP Family Medicine; Visit Provider Obstetrics & Gynecology
PROC: 0UJD8ZZ Inspection of Uterus and Cervix, Via Natural or Artificial Opening Endoscopic (ICD-10-PCS; CPT 58555; principal; 2024-04-02 07:00)
PROC: 0UPD8HZ Removal of Contraceptive Device from Uterus and Cervix, Via Natural or Artificial Opening Endoscopic (ICD-10-PCS; CPT 58301; 2024-04-02 07:00)
DX: Z30.431 Encounter for routine checking of intrauterine contraceptive device (principal); I10 Essential (primary) hypertension; I25.2 Old myocardial infarction; E11.9 Type 2 diabetes mellitus without complications; E66.01 Morbid (severe) obesity due to excess calories; Z68.34 Body mass index [BMI] 34.0-34.9, adult; Z79.82 Long term (current) use of aspirin; F17.200 Nicotine dependence, unspecified, uncomplicated
CPT/HCPCS: 58579; 36416; 82962; J1100; J1200; J2250; J2405; J2704; J3010; J7030

== ENCOUNTER → 2024-05-29 10:55 | Outpatient (BNVA) | payer BC, SELFPAY | PROVIDERS: PCP Family Medicine; Visit Provider Family Medicine | DX: Z51.81 Encounter for therapeutic drug level monitoring (principal); E11.9 Type 2 diabetes mellitus without complications; E53.8 Deficiency of other specified B group vitamins | CPT/HCPCS: 80053; 82607; 83036; 85025 ==

== ENCOUNTER 2024-07-15 13:00 | Emergency (ER) | payer BC, SELFPAY ==
--- NOTE | 2024-07-15 13:02 | ECG_ITS ---
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 Measurements Intervals [place] Rate: 69 P: 49 GA: 142 QRS: 41 QRSD: 88 T: 64 QT: 379 QTc: 408 Interpretive Statements SINUS RHYTHM POSSIBLE LEFT ATRIAL ENLARGEMENT [-0.1mV P-WAVE IN V1/V2] Compared to ECG 09/29/2023 17:04:01 Myocardial infarct finding no longer present Electronically Signed On 07-15-2024 23:28:52 CDT by Pollo Canales M.D. [id number]
--- NOTE | 2024-07-15 13:06 | XR_ITS ---
WS: [id number] Exam: XR chest 1V portable [id number] Date/Time of Exam: 07/15/2024 1:14 PM Reason For Exam: cp Comparison 09/29/2023. Lungs are clear and fully inflated. Normal cardiomediastinal silhouette and regional bony elements. N o pleural effusion. XR/XR chest 1V portable [id number] IMPRESSION: 1. Negative chest.
[2024-07-15 13:07] VITALS: BP 112/68; PULSE 68; RESP 16; TEMP 36.9; O2SAT 100
[2024-07-15 14:06] LABS: Basophils # 0.1 10^3/uL (0.0-0.1); Basophils % 0.9 %; Eosinophils # 0.2 10^3/uL (0.0-0.8); Hematocrit 46.2 % (36-47); Lymphocytes # 2.4 10^3/uL (0.8-4.8); Lymphocytes % 25.5 %; Mean Corpuscular HGB Conc 33.3 g/dL (30-55); Mean Corpuscular Hemoglobin 30.3 pg (27-33); Mean Corpuscular Volume 90.9 fl (85-98); Monocytes # 0.7 10^3/uL (0.2-0.9); Monocytes % 7.7 %; Neutrophils # 5.79 10^3/uL (1.8-7.7); Neutrophils % 62.9 %; Nucleated Red Blood Cells % 0 %; Platelet Count 261 10^3/cmm (157-399); Red Blood Count 5.08 10^6/uL (3.85-5.65); Red Cell Distribution Width 13.3 % (12.1-15.1)
--- NOTE | 2024-07-15 14:07 | ED_ITS ---
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 She says she started with right neck pain and then she had some pressure in her left chest and into her left neck. Says this was fairly similar to when she had a heart attack before. Started about 2 hours ago but has since resolved. She has no pain at this point. No congestion. No cough. No shortness of breath. No abdominal pain. No nausea or vomiting. Related Data Home Medications Medication Instructions Recorded Confirmed losartan 100 mg tablet 50 mg PO DAILY 03/16/24 07/15/24 albuterol sulfate 90 mcg/actuation 2 puff inhalation Q6H PRN Wheezing 07/15/24 07/15/24 aerosol inhaler fluconazole 100 mg tablet 100 mg PO Q72H 07/15/24 07/15/24 (Diflucan) lamotrigine 25 mg tablet 75 mg PO DAILY 07/15/24 07/15/24 Previous Rx's Medication Instructions Recorded blood-glucose meter #1 ea 01/31/23 blood sugar diagnostic (OneTouch #100 ea 02/04/23 Ultra Test strips) lancets 33 gauge (OneTouch Delica #100 ea 02/04/23 Plus Lancet) aspirin 81 mg tablet,delayed 81 mg PO DAILY #100 tabs 09/30/23 release nitroglycerin 0.4 mg sublingual 0.4 mg sublingual Q5M PRN chest 09/30/23 tablet pain #25 tabs rosuvastatin 10 mg tablet 10 mg PO DAILY #90 tabs 09/30/23 metformin 500 mg tablet,extended 250 mg (1/2 x 500 mg) PO BID #90 10/04/23 release 24 hr tabs atenolol 100 mg tablet 100 mg PO QAM #90 tabs 10/22/23 venlafaxine 225 mg tablet,extended 225 mg PO DAILY #30 tabs 05/11/24 release 24 hr guanfacine 2 mg tablet 2 mg PO DAILY #30 tabs 05/29/24 mupirocin 2 % topical ointment 1 applic topical BID #15 grams 05/29/24 omeprazole 40 mg capsule,delayed 40 mg PO DAILY #30 caps 05/29/24 release tirzepatide 5 mg/0.5 mL See Rx Instructions .Route 06/16/24 subcutaneous pen injector .COMPLEX #4 mL (Irasema) clopidogrel 75 mg tablet 75 mg PO DAILY #90 tabs 06/18/24 amlodipine 5 mg tablet 5 mg PO QAM #90 tabs 07/09/24 hydrocodone 7.5 mg-acetaminophen 1 tab PO Q6H PRN pain 30 days #120 07/09/24 325 mg tablet tabs Allergies Allergy/AdvReac Type Severity Reaction Status Date / Time clarithromycin [From Biaxin] Allergy Pruritis, Verified 07/15/24 13:12 nausea dextromethorphan Allergy Vomiting Verified 07/15/24 13:12 moxifloxacin [From Avelox] Allergy Pruritis, Verified 07/15/24 13:12 nausea lisinopril AdvReac Mild ADR-Cough Verified 07/15/24 13:12 Review of Systems 2 Narrative: Constitutional symptoms: Negative except as documented in HPI. Skin symptoms: Negative except as documented in HPI. Eye symptoms: Negative except as documented in HPI. ENMT symptoms: Negative except as documented in HPI. Respiratory symptoms: Negative except as documented in HPI. Cardiovascular symptoms: Negative except as documented in HPI. Gastrointestinal symptoms: Negative except as documented in HPI. Genitourinary symptoms: Negative except as documented in HPI. Musculoskeletal symptoms: Negative except as documented in HPI. Neurologic symptoms: Negative except as documented in HPI. Psychiatric symptoms: Negative except as documented in HPI. Endocrine symptoms: Negative except as documented in HPI. PFSH ED 2 PFSH: Medical History Hypertension Tobacco abuse counseling Opioid contract exists Encounter for long-term use of opiate analgesic Musculoskeletal back pain Smoker HGSIL (high grade squamous intraepithelial lesion) on Pap smear of cervix Patient was counseled regarding abnormal Pap smear results. Her Pap resulted in high-grade TARA. Women with this results have a 5 year DAVID-3+ risks of 47% and per current ACOG/ASSCP guidelines a colposcopy is indicated. She was counseled regarding colposcopy and an ACOG patient medication handout regarding abnormal Pap results and colposcopy was given. All questions were answered regarding colposcopy. Colposcopy was inadequate and a diagnostic excision as a cone biopsy is recommended. She was counseled regarding cone biopsy and elected to proceed with the procedure. She is scheduled for the diagnostic excisional procedure on 11/12/2018. Surgical History Hx of heart artery stent Stent placed in the PDA by Dr Vela - 09/2023 History of carpal tunnel surgery of left wrist Dr. Rodríguez History of cervical biopsy Cervical cone biopsy 11/12/2018 History of surgical removal of ganglion cyst History of bunionectomy History of cholecystectomy Family History Mother Diabetes Heart disease Hypertension Hypercholesteremia Family/Other No problems noted. Father Diabetes Heart disease Hypertension Denies family history of Colon cancer Ovarian cancer Prostate cancer Breast cancer Uterine cancer Thyroid disease Stroke Social History (Updated 07/06/24 @ 21:26 by Gagan Lomeli MD) Smoking and tobacco/nicotine status: current every day tobacco/nicotine user Physical Exam 2 Narrative: EXAM NARRATIVE: General: Alert, no acute distress. Skin: Warm, dry. Head: Normocephalic, atraumatic. Neck: Supple, trachea midline. Eye: Extraocular movements are intact. Ears, nose, mouth and throat: mucosa moist. Cardiovascular: Regular, Normal peripheral perfusion. Respiratory: Lungs are clear to auscultation, respirations are non-labored, breath sounds are equal, Symmetrical chest wall expansion. Gastrointestinal: Soft, Nontender, Non distended Musculoskeletal: Normal ROM, no deformity. Neurological: Alert and oriented, No focal neurological deficit observed. Psychiatric: Cooperative, appropriate mood & affect. Course 2 Vital Signs: Vital signs: Vital Signs Temperature 98.4 F 07/15/24 13:07 Pulse Rate 69 07/15/24 16:30 Respiratory Rate 16 07/15/24 16:30 Blood Pressure 131/74 07/15/24 16:30 Pulse Oximetry 96 07/15/24 16:30 Oxygen Delivery Me thod Room Air 07/15/24 16:30 MDM - Chest Pain Medical Decision Making Differential diagnosis for patient with chest pain includes but is not limited to and based on the above HPI, review of systems and physical exam: Pneumonia. unstable angina. angina. Acute coronary syndrome / [place]. Pulmonary embolism. Costochondritis / musculoskeletal. Pleurisy. Pericarditis. Esophageal spasm. Pancreatis. Cholecystitis. Orders placed to evaluate differential diagnosis based on the above differential, HPI and physical exam EKG: Time 1301. Rate 69. Normal sinus rhythm, No ST-T changes, no ectopy, normal MT & QRS intervals, This was reviewed and interpreted by myself the ER physician at 1302 Repeat EKG: Time 1501. Rate 64. Normal sinus rhythm, No ST-T changes, no ectopy, normal MT & QRS intervals, This was reviewed and interpreted by myself the ER physician at 1505. No significant change from EKG done in the emergency room previously today Lab Review: Laboratory results were reviewed and interpreted by myself the emergency room physician. No leukocytosis. No anemia. BUN and creatinine are stable at 21.1. Serial cardiac markers are negative. I reviewed the patient's medical record. Reexamination: Patient remained stable. No increased work of breathing. No altered mental status. No focal motor deficits. Assessment and plan: Noncardiac chest pain ?Patient request to go home. Her cardiac markers are negative. 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 - Discharged home - Discussed plan with patient. Answered any questions. - Evaluation and treatment of this problem were appropriate in the emergency setting. Lab Data 07/15/24 13:51 07/15/24 13:51 Radiology Impressions Chest X-Ray 07/15/24 13:06 IMPRESSION: 1. Negative chest. Laboratory Results WBC 9.20 10^3/uL (3.29-11.43) 07/15/24 13:51 RBC 5.08 10^6/uL (3.85-5.65) 07/15/24 13:51 Hgb 15.40 g/dL (11.27-16.99) 07/15/24 13:51 Hct 46.2 % (36-47) 07/15/24 13:51 MCV 90.9 fl (85-98) 07/15/24 13:51 MCH 30.3 pg (27-33) 07/15/24 13:51 MCHC 33.3 g/dL (30-55) 07/15/24 13:51 RDW 13.3 % (12.1-15.1) 07/15/24 13:51 Plt Count 261 10^3/cmm (157-399) 07/15/24 13:51 MPV 10.0 fL (7.4-10.4) 07/15/24 13:51 Neut % (Auto) 62.9 % 07/15/24 13:51 Lymph % (Auto) 25.5 % 07/15/24 13:51 Cass % (Auto) 7.7 % 07/15/24 13:51 Eos % (Auto) 2.0 % 07/15/24 13:51 Baso % (Auto) 0.9 % 07/15/24 13:51 Neut # (Auto) 5.79 10^3/uL (1.8-7.7) 07/15/24 13:51 Lymph # (Auto) 2.4 10^3/uL (0.8-4.8) 07/15/24 13:51 Cass # (Auto) 0.7 10^3/uL (0.2-0.9) 07/15/24 13:51 Eos # (Auto) 0.2 10^3/uL (0.0-0.8) 07/15/24 13:51 Baso # (Auto) 0.1 10^3/uL (0.0-0.1) 07/15/24 13:51 Nucleated RBC % (auto) 0 % 07/15/24 13:51 Nucleated RBCs # 0.0 /100WBC 07/15/24 13:51 PT 12.10 SECONDS (12.1-14.9) 07/15/24 13:51 INR 0.87 (0.8-1.2) 07/15/24 13:51 Sodium 136 mmol/L (136-145) 07/15/24 13:51 Potassium 4.6 mmol/L (3.5-5.1) 07/15/24 13:51 Chloride 97 mmol/L (98-107) L 07/15/24 13:51 Carbon Dioxide 30 mmol/L (22-29) H 07/15/24 13:51 Anion Gap 13.6 (5-19) 07/15/24 13:51 BUN 20 mg/dL (6-20) 07/15/24 13:51 Creatinine 1.1 mg/dL (0.5-0.9) H 07/15/24 13:51 GFR Calculation 52.0 mL/min (90-130) L 07/15/24 13:51 Glucose 150 mg/dL (65-115) H 07/15/24 13:51 Calculated Osmolality 287 mOsm/kg (285-295) 07/15/24 13:51 Calcium 9.6 mg/dL (8.5-10.5) 07/15/24 13:51 Total Bilirubin 0.2 mg/dL (0.15-1.2) 07/15/24 13:51 AST 15 U/L (0-32) 07/15/24 13:51 ALT 30 U/L (0-33) 07/15/24 13:51 Alkaline Phosphatase 116 U/L (35-105) H 07/15/24 13:51 Troponin T Baseline 9 ng/L (0-10) 07/15/24 13:51 Troponin T 120 Minute 6.94 ng/L (0-10) 07/15/24 16:04 Delta Troponin T -2.06 ABS# (0-10) L 07/15/24 16:04 Total Protein 7.2 g/dL (6.6-8.7) 07/15/24 13:51 Albumin 4.7 g/dL (3.5-5.2) 07/15/24 13:51 Globulin 2.5 g/dL (1.3-4.6) 07/15/24 13:51 Lipase 40 U/L (13-60) 07/15/24 13:51 No radiology studies performed this visit Discharge Plan Discharge Patient Disposition: Home Clinical Impression: Non-cardiac chest pain Condition: Stable Prescriptions: No Action metformin 500 mg tablet extended release 24 hr 250 mg PO BID Qty: 90 3RF guanfacine 2 mg tablet 2 mg PO DAILY Qty: 30 3RF Rx Instructions: Don't take with Clonidine omeprazole 40 mg capsule,delayed release(DR/EC) 40 mg PO DAILY Qty: 30 3RF mupirocin 2 % ointment 1 applic topical BID Qty: 15 2RF hydrocodone-acetaminophen 7.5-325 mg tablet 1 tab PO Q6H PRN (Reason: pain) 30 Days Qty: 120 0RF Rx Instructions: Do not fill before 07/15/24 amlodipine 5 mg tablet 5 mg PO QAM Qty: 90 3RF (DME) blood-glucose meter Kit See Rx Instructions .ROUTE .MEDSUPPLY Qty: 1 0RF Rx Instructions: As directed losartan 100 mg tablet 50 mg PO DAILY Rx Instructions: take 1/2 tablet by mouth daily (DME) lancets [OneTouch Delica Plus Lancet] 33 gauge misc See Rx Instructions .ROUTE .MEDSUPPLY Qty: 100 12RF Rx Instructions: As directed (DME) OneTouch Ultra Test Strip See Rx Instructions .Route Qty: 100 12RF Rx Instructions: As directed atenolol 100 mg tablet 100 mg PO QAM Qty: 90 3RF venlafaxine 225 mg tablet extended release 24hr 225 mg PO DAILY Qty: 30 6RF Mounjaro 5 mg/0.5 mL pen injector See Rx Instructions .ROUTE .COMPLEX Qty: 4 3RF Dose Instruction: INJECT 5MG (0.5 ML) SUBCUTANEOUSLY EVERY 7 DAYS Rx Instructions: INJECT 5MG (0.5 ML) SUBCUTANEOUSLY EVERY 7 DAYS clopidogrel 75 mg tablet 75 mg PO DAILY Qty: 90 2RF aspirin 81 mg Tablet,Delayed Release (Dr/Ec) 81 mg PO DAILY Qty: 100 8RF rosuvastatin 10 mg tablet 10 mg PO DAILY Qty: 90 6RF nitroglycerin 0.4 mg tablet, sublingual 0.4 mg sublingual Q5M PRN (Reason: chest pain) Qty: 25 4RF Rx Instructions: do not exceed 3 doses per episode albuterol sulfate 90 mcg/actuation HFA aerosol inhaler 2 puff INHALATION Q6H PRN (Reason: Wheezing) fluconazole [Diflucan] 100 mg tablet 100 mg PO Q72H lamotrigine 25 mg tablet 75 mg PO DAILY Discharge Orders: Discharge ED (Routine); Ordered 07/15/24 Ordered By: Anusha Welch Referrals: Gagan Lomeli MD [Primary Care Provider] - Discharge Diet: Usual diet Discharge Activity: Increase activity as tolerated Patient Instructions: Noncardiac Chest Pain (ED) Activity Restrictions/Additional Instructions: Thank you for choosing [facility] for your healthcare needs today. Please realize this is an emergency room and that we are providing you with a medical screening exam and this may not be complete and all inclusive of all the testing and or work up that you may need to determine your ailment or severity of your illness. You have been screened and evaluated and felt safe for discharge. Health conditions do change or evolve sometimes and as such it is important that you follow up with your Primary Doctor to be re checked, 3-5 days is a general good time frame for follow up. 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
[2024-07-15 14:21] LABS: INR 0.87 (0.8-1.2)
[2024-07-15 14:22] LABS: Troponin(5th) Baseline 9 ng/L (0-10)
[2024-07-15 14:25] LABS: Alanine Aminotransferase 30 U/L (0-33); Albumin Level 4.7 g/dL (3.5-5.2); Alkaline Phosphatase 116 U/L (35-105); Anion Gap 13.6 (5-19); Aspartate Amino Transferase 15 U/L (0-32); Blood Urea Nitrogen 20 mg/dL (6-20); Calcium 9.6 mg/dL (8.5-10.5); Carbon Dioxide 30 mmol/L (22-29); Chloride 97 mmol/L (98-107); Creatinine Clr Calc Pharmacy 67.9503; Globulin 2.5 g/dL (1.3-4.6); Glucose 150 mg/dL (65-115); Lipase 40 U/L (13-60); Osmolality Calculated 287 mOsm/kg (285-295); Potassium 4.6 mmol/L (3.5-5.1); Sodium 136 mmol/L (136-145); Total Bilirubin 0.2 mg/dL (0.15-1.2); Total Protein 7.2 g/dL (6.6-8.7)
[2024-07-15 14:52] VITALS: BP 127/74; PULSE 69; RESP 16; O2SAT 90
--- NOTE | 2024-07-15 15:01 | ECG_ITS ---
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 Measurements Intervals [place] Rate: 64 P: 49 DE: 142 QRS: 42 QRSD: 86 T: 39 QT: 395 QTc: 409 Interpretive Statements SINUS RHYTHM POSSIBLE LEFT ATRIAL ENLARGEMENT [-0.1mV P-WAVE IN V1/V2] Compared to ECG 07/15/2024 13:01:01 No significant changes Electronically Signed On 07-15-2024 23:40:24 CDT by Pollo Canales M.D. [id number]
[2024-07-15 15:21] VITALS: BP 134/72; PULSE 67; RESP 16; O2SAT 100
[2024-07-15 16:30] VITALS: BP 131/74; PULSE 69; RESP 16; O2SAT 96
[2024-07-15 16:30] LABS: Troponin 5 2HR 6.94 ng/L (0-10)
[2024-07-15 16:32] LABS: Troponin 5 2HR Delta -2.06 ABS# (0-10)
[2024-07-15] MEDS: acetaminophen 500 mg Tablet 1000 MG PO (16:53)
[2024-07-15 17:01] VITALS: BP 134/82; PULSE 68; RESP 16; O2SAT 98
== END 2024-07-15 16:57 | disposition home or self-care (01) ==
PROVIDERS: Emergency Medicine; Emergency Provider Emergency Medicine; PCP Family Medicine
DX: R07.89 Other chest pain (principal); Z79.84 Long term (current) use of oral hypoglycemic drugs; Z79.85 Long-term (current) use of injectable non-insulin antidiabetic drugs; Z79.82 Long term (current) use of aspirin; Z79.02 Long term (current) use of antithrombotics/antiplatelets; Z72.0 Tobacco use; I10 Essential (primary) hypertension
CPT/HCPCS: 71045; 80053; 83690; 84484; 85025; 85610; 93005; 99285

== ENCOUNTER 2025-01-29 09:14 | Emergency (ER) | payer SELFPAY ==
[2025-01-29 09:32] VITALS: BP 181/73; PULSE 84; RESP 18; TEMP 36.8; O2SAT 96; BMI 34.2
[2025-01-29 09:39] LABS: Glucose Point of Care 344 mg/dL (70-110)
--- NOTE | 2025-01-29 10:27 | W.ED.SKABFB ---
HPI - Skin/Abscess/Foreign Bdy General: Chief complaint: Skin/Abscess/Foreign Body Stated complaint: nausea/chills Time Seen by Provider: 01/29/25 10:19 History of Present Illness: 54-year-old female who presents to the emergency room with an area that she is concerned may be a tick bite in her left groin she is excoriated some disease, excoriated areas on the hand as well between 1st and 2nd finger. Mild erythema no active drainage no fluctuance her blood sugars have been elevated no fever sweats or chills Associated symptoms: Deny chills or fever(s) Related Data Home Medications ?Medication ?Instructions ?Recorded ?Confirmed losartan 100 mg tablet 100 mg PO DAILY 03/16/24 01/29/25 Previous Rx's ?Medication ?Instructions ?Recorded aspirin 81 mg tablet,delayed 81 mg PO DAILY #100 tabs 09/30/23 release nitroglycerin 0.4 mg sublingual 0.4 mg sublingual Q5M PRN chest 09/30/23 tablet pain #25 tabs rosuvastatin 10 mg tablet 10 mg PO DAILY #90 tabs 09/30/23 clopidogrel 75 mg tablet 75 mg PO DAILY #90 tabs 06/18/24 amlodipine 5 mg tablet 5 mg PO QAM #90 tabs 07/09/24 omeprazole 40 mg capsule,delayed 40 mg PO DAILY #90 caps 10/01/24 release guanfacine 2 mg tablet 2 mg PO DAILY #30 tabs 10/09/24 atenolol 100 mg tablet 100 mg PO QAM #90 tabs 10/27/24 metformin 500 mg tablet,extended 250 mg (1/2 x 500 mg) PO BID #90 10/30/24 release 24 hr tabs lamotrigine 25 mg tablet See Rx Instructions .Route 11/09/24 .COMPLEX #270 tabs venlafaxine 225 mg tablet,extended 225 mg PO DAILY #30 tabs 12/14/24 release 24 hr hydrocodone 7.5 mg-acetaminophen 1 tab PO Q6H PRN pain 30 days #120 01/01/25 325 mg tablet tabs doxycycline hyclate 100 mg capsule 100 mg PO BID 10 days #20 caps 01/29/25 mupirocin 2 % topical ointment 1 applic topical BID #15 grams 01/29/25 ([facility]) Allergies Allergy/AdvReac Type Severity Reaction Status Date / Time clarithromycin (From Biaxin) Allergy Pruritis, Verified 07/15/24 13:12 nausea dextromethorphan Allergy Vomiting Verified 07/15/24 13:12 moxifloxacin (From Avelox) Allergy Pruritis, Verified 07/15/24 13:12 nausea lisinopril AdvReac Mild ADR-Cough Verified 07/15/24 13:12 Review of Systems Const: Denies: fever(s) or chills Card: Denies: chest pain Resp: Denies: dyspnea GI: Denies: abdominal pain : Denies: dysuria, urinary frequency or urinary urgency Musc: Denies: neck pain or back pain Skin/Breast: Denies: rash PFSH ED PFSH: Medical History Hypertension Tobacco abuse counseling Opioid contract exists Encounter for long-term use of opiate analgesic Musculoskeletal back pain Smoker HGSIL (high grade squamous intraepithelial lesion) on Pap smear of cervix Patient was counseled regarding abnormal Pap smear results. Her Pap resulted in high-grade TARA. Women with this results have a 5 year DAVID-3+ risks of 47% and per current ACOG/ASSCP guidelines a colposcopy is indicated. She was counseled regarding colposcopy and an ACOG patient medication handout regarding abnormal Pap results and colposcopy was given. All questions were answered regarding colposcopy. Colposcopy was inadequate and a diagnostic excision as a cone biopsy is recommended. She was counseled regarding cone biopsy and elected to proceed with the procedure. She is scheduled for the diagnostic excisional procedure on 11/12/2018. Surgical History Hx of heart artery stent Stent placed in the PDA by Dr Vela - 09/2023 History of carpal tunnel surgery of left wrist Dr. Rodríguez History of cervical biopsy Cervical cone biopsy 11/12/2018 History of surgical removal of ganglion cyst History of bunionectomy History of cholecystectomy Family History Mother Diabetes Heart disease Hypertension Hypercholesteremia Family/Other No problems noted. Father Diabetes Heart disease Hypertension Denies family history of Colon cancer Ovarian cancer Prostate cancer Breast cancer Uterine cancer Thyroid disease Stroke Social History Smoking and tobacco/nicotine status: current every day tobacco/nicotine user Physical Exam Const: COMMON NORMALS: no acute distress GENERAL APPEARANCE: cooperative and comfortable ORIENTATION/CONSCIOUSNESS: Yes awake, Yes oriented to person, Yes oriented to place and Yes oriented to time HENMT: COMMON NORMALS: normocephalic, atraumatic and hearing grossly normal bilaterally HEAD & SCALP: normocephalic and atraumatic Resp: COMMON NORMALS: normal respiratory effort, No retractions, No use of accessory muscles and clear to auscultation bilaterally AUSCULTATION: clear to auscultation bilaterally Cardio: COMMON NORMALS: regular rate, regular rhythm and No murmurs present (Cardio) RATE: regular rate RHYTHM: regular rhythm GI: COMMON NORMALS: Soft to palpation and No hepatosplenomegaly present AUSCULTATION: Yes normoactive bowel sounds PALPATION: Yes Soft to palpation, No Tenderness to palpation present (GI), No Guarding due to palpation present (GI) and Yes No hepatosplenomegaly present Extremity: COMMON NORMALS: normal to inspection, capillary refill normal, no clubbing, cyanosis or edema, no calf tenderness and no pedal edema Neuro: SENSORIUM/ORIENTATION: Yes oriented to person, Yes oriented to place and Yes oriented to time Skin: OTHER: No extensive rashes noted there are excoriated areas on the left hand and the left groin. No circular rash around those areas. Course Vital Signs: Vital signs: Vital Signs Temperature 98.2 F 01/29/25 09:32 Pulse Rate 66 01/29/25 12:30 Respiratory Rate 18 01/29/25 09:32 Blood Pressure 148/89 01/29/25 12:30 Pulse Oximetry 98 01/29/25 12:30 Oxygen Delivery Me thod Room Air 01/29/25 12:03 MDM - Skin/Abscess/Foreign Bdy Medicial Decision Making Will Goeden start her on doxycycline treat with topical antibiotic ointment follow-up primary care follow-up with tick panel Medical Records I reviewed the patient's medical records. Lab Data I reviewed the patient's lab results. 01/29/25 10:34 01/29/25 10:34 Laboratory Results WBC 9.34 10^3/uL (3.29-11.43) 01/29/25 10:34 RBC 4.93 10^6/uL (3.85-5.65) 01/29/25 10:34 Hgb 14.80 g/dL (11.27-16.99) 01/29/25 10:34 Hct 44.0 % (36-47) 01/29/25 10:34 MCV 89.2 fl (85-98) 01/29/25 10:34 MCH 30.0 pg (27-33) 01/29/25 10:34 MCHC 33.6 g/dL (30-55) 01/29/25 10:34 RDW 12.6 % (12.1-15.1) 01/29/25 10:34 Plt Count 217 10^3/cmm (157-399) 01/29/25 10:34 MPV 9.8 fL (7.4-10.4) 01/29/25 10:34 Neut % (Auto) 74.0 % 01/29/25 10:34 Lymph % (Auto) 16.4 % 01/29/25 10:34 Collier % (Auto) 6.3 % 01/29/25 10:34 Eos % (Auto) 1.6 % 01/29/25 10:34 Baso % (Auto) 1.1 % 01/29/25 10:34 Neut # (Auto) 6.91 10^3/uL (1.8-7.7) 01/29/25 10:34 Lymph # (Auto) 1.5 10^3/uL (0.8-4.8) 01/29/25 10:34 Collier # (Auto) 0.6 10^3/uL (0.2-0.9) 01/29/25 10:34 Eos # (Auto) 0.2 10^3/uL (0.0-0.8) 01/29/25 10:34 Baso # (Auto) 0.1 10^3/uL (0.0-0.1) 01/29/25 10:34 Nucleated RBC % (auto) 0 % 01/29/25 10:34 Nucleated RBCs # 0.0 /100WBC 01/29/25 10:34 Sodium 133 mmol/L (136-145) L 01/29/25 10:34 Potassium 5.3 mmol/L (3.5-5.1) H 01/29/25 10:34 Chloride 97 mmol/L (98-107) L 01/29/25 10:34 Carbon Dioxide 23 mmol/L (22-29) 01/29/25 10:34 Anion Gap 18.3 (5-19) 01/29/25 10:34 BUN 12 mg/dL (6-20) 01/29/25 10:34 Creatinine 0.8 mg/dL (0.5-0.9) 01/29/25 10:34 GFR Calculation 74.7 mL/min (90-130) L 01/29/25 10:34 Glucose 264 mg/dL (65-115) H 01/29/25 10:34 POC Glucose 226 mg/dL (70-110) H 01/29/25 12:02 Calculated Osmolality 285 mOsm/kg (285-295) 01/29/25 10:34 Calcium 10.0 mg/dL (8.5-10.5) 01/29/25 10:34 Total Bilirubin 0.3 mg/dL (0.15-1.2) 01/29/25 10:34 AST 30 U/L (0-32) 01/29/25 10:34 ALT 59 U/L (0-33) H 01/29/25 10:34 Alkaline Phosphatase 120 U/L (35-105) H 01/29/25 10:34 Total Protein 7.7 g/dL (6.6-8.7) 01/29/25 10:34 Albumin 4.3 g/dL (3.5-5.2) 01/29/25 10:34 Globulin 3.4 g/dL (1.3-4.6) 01/29/25 10:34 All radiology interpretation(s) finalized by discharge Discharge Plan Discharge Patient Disposition: Home Clinical Impression: Tick bite of groin, Cellulitis Condition: Stable Prescriptions: New doxycycline hyclate 100 mg capsule 100 mg PO BID 10 Days Qty: 20 0RF mupirocin [Centany] 2 % ointment 1 applic topical BID Qty: 15 0RF No Action amlodipine 5 mg tablet 5 mg PO QAM Qty: 90 3RF losartan 100 mg tablet 100 mg PO DAILY clopidogrel 75 mg tablet 75 mg PO DAILY Qty: 90 2RF omeprazole 40 mg capsule,delayed release(DR/EC) 40 mg PO DAILY Qty: 90 3RF guanfacine 2 mg tablet 2 mg PO DAILY Qty: 30 6RF Rx Instructions: Don't take with Clonidine atenolol 100 mg tablet 100 mg PO QAM Qty: 90 3RF metformin 500 mg tablet extended release 24 hr 250 mg PO BID Qty: 90 3RF lamotrigine 25 mg tablet See Rx Instructions .ROUTE .COMPLEX Qty: 270 2RF Dose Instruction: Take 3 tablets by mouth once daily Rx Instructions: Take 3 tablets by mouth once daily venlafaxine 225 mg tablet extended release 24hr 225 mg PO DAILY Qty: 30 6RF hydrocodone-acetaminophen 7.5-325 mg tablet 1 tab PO Q6H PRN (Reason: pain) 30 Days Qty: 120 0RF aspirin 81 mg Tablet,Delayed Release (Dr/Ec) 81 mg PO DAILY Qty: 100 8RF rosuvastatin 10 mg tablet 10 mg PO DAILY Qty: 90 6RF nitroglycerin 0.4 mg tablet, sublingual 0.4 mg sublingual Q5M PRN (Reason: chest pain) Qty: 25 4RF Rx Instructions: do not exceed 3 doses per episode Discharge Orders: Discharge ED (Routine); Ordered 01/29/25 Ordered By: Marty Velasquez Referrals: Gagan Lomeli MD [Primary Care Provider] - Discharge Diet: Usual diet Discharge Activity: Resume usual activity Patient Instructions: Opioid Safety, Pain Management Activity Restrictions/Additional Instructions: Thank you for choosing [facility] for your healthcare needs today. It is very important that you follow up as instructed or that you return to the Emergency Department should you have concerns or if your condition changes or worsens in any way. You were seen this morning for complaint of open wound of your head and in the left groin. It is mild infection localized there. You have reported that these are due to a tick bite. Recommend starting doxycycline 100 mg twice a day for 10 days. A tick panel was done will take several days to get the results. Follow-up with your primary care doctor. 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
[2025-01-29 10:37] VITALS: BP 170/90
[2025-01-29] MEDS: sodium chloride 0.9% 1,000 ML 999 ML IV (10:41)
[2025-01-29 10:46] LABS: Basophils # 0.1 10^3/uL (0.0-0.1); Basophils % 1.1 %; Eosinophils # 0.2 10^3/uL (0.0-0.8); Eosinophils % 1.6 %; Lymphocytes # 1.5 10^3/uL (0.8-4.8); Lymphocytes % 16.4 %; Mean Corpuscular HGB Conc 33.6 g/dL (30-55); Mean Corpuscular Volume 89.2 fl (85-98); Mean Platelet Volume 9.8 fL (7.4-10.4); Monocytes # 0.6 10^3/uL (0.2-0.9); Monocytes % 6.3 %; Neutrophils # 6.91 10^3/uL (1.8-7.7); Nucleated Red Blood Cells % 0 %; Platelet Count 217 10^3/cmm (157-399); Red Blood Count 4.93 10^6/uL (3.85-5.65); Red Cell Distribution Width 12.6 % (12.1-15.1); White Blood Count 9.34 10^3/uL (3.29-11.43)
[2025-01-29 11:06] LABS: Alanine Aminotransferase 59 U/L (0-33); Albumin Level 4.3 g/dL (3.5-5.2); Alkaline Phosphatase 120 U/L (35-105); Blood Urea Nitrogen 12 mg/dL (6-20); Carbon Dioxide 23 mmol/L (22-29); Chloride 97 mmol/L (98-107); Creatinine Clr Calc Pharmacy 97.3332; Globulin 3.4 g/dL (1.3-4.6); Glomerular Filtration Rate 74.7 mL/min (90-130); Glucose 264 mg/dL (65-115); Osmolality Calculated 285 mOsm/kg (285-295); Sodium 133 mmol/L (136-145); Total Bilirubin 0.3 mg/dL (0.15-1.2); Total Protein 7.7 g/dL (6.6-8.7)
[2025-01-29 11:07] LABS: Anion Gap 18.3 (5-19); Potassium 5.3 mmol/L (3.5-5.1)
[2025-01-29 11:08] LABS: Aspartate Amino Transferase 30 U/L (0-32)
[2025-01-29 12:03] VITALS: BP 161/85; PULSE 85; O2SAT 99
[2025-01-29 12:13] LABS: Glucose Point of Care 226 mg/dL (70-110)
[2025-01-29 12:30] VITALS: BP 148/89; PULSE 66; O2SAT 98
[2025-02-01 16:00] LABS: Lyme AB Screen <0.90 index
[2025-02-01 19:13] LABS: E. Chaffeensis AB IGG <1:64; E. Chaffeensis AB IGM <1:20
[2025-02-02 16:40] LABS: RMSF IGG NOT DETECTED; RMSF IGM NOT DETECTED
== END 2025-01-29 12:34 | disposition home or self-care (01) ==
PROVIDERS: Emergency Provider Family Medicine; PCP Family Medicine
DX: S30.861A Insect bite (nonvenomous) of abdominal wall, initial encounter (principal); L03.314 Cellulitis of groin; W57.XXXA Bitten or stung by nonvenomous insect and other nonvenomous arthropods, initial encounter; Z79.82 Long term (current) use of aspirin; Z79.84 Long term (current) use of oral hypoglycemic drugs; Z79.02 Long term (current) use of antithrombotics/antiplatelets; Z72.0 Tobacco use; I10 Essential (primary) hypertension
CPT/HCPCS: 36415; 36416; 80053; 82962; 85025; 86618; 86666; 86757; 99283; J7030

== ENCOUNTER → 2025-06-07 11:22 | Outpatient (BNVA) | payer SELFPAY | PROVIDERS: PCP Family Medicine; Visit Provider Family Medicine | DX: E11.9 Type 2 diabetes mellitus without complications (principal); Z51.81 Encounter for therapeutic drug level monitoring | CPT/HCPCS: 80053; 83036; 85025 ==